=== PATIENT | female | born 1945 | race Asian ===

== ENCOUNTER 2018-09-21 16:29 | Emergency (ER) | payer OTHER ==
--- NOTE | 2018-09-21 19:04 | RAD REPORT ---
EXAM DESCRIPTION: US - Abdomen Exam Limited - 09/21/2018 5:55 pm CLINICAL HISTORY: Abdominal pain. COMPARISON: None. FINDINGS: The gallbladder wall is not thickened. A gallstone is not seen. The biliary tree is normal caliber. IMPRESSION: Unremarkable gallbladder ultrasound.
[2018-09-21 20:09] LABS: Urine Blood TRACE (NEG); Urine Glucose NEGATIVE (NEG); Urine Protein NEGATIVE (NEG); Urine Specific Gravity 1.015 (1.005-1.030); Urine pH 7.5 (5.0-7.0)
[2018-09-21] MEDS ORDERED: KETOROLAC 30 MG/ML INJ ONE (20:24)
[2018-09-21 20:26] LABS: Absolute Lymphocytes (CBC) 2.5 K/uL (0.7-4.9); Absolute Monocytes 0.6 K/uL (0.1-1.3); Absolute Neutrophil 3.1 K/uL (1.8-8.0); Basophils % 1.1 % (0-1.3); Eosinophils % 2.4 % (0-4.4); Hematocrit 41.3 % (36.0-45.0); Lymphocytes % 39.1 % (15.3-44.8); MPV 9.3 fL (7.6-11.3); Monocytes % 9.2 % (3.3-12.3)
[2018-09-21 20:29] LABS: Urine Bacteria NONE SEEN /HPF (<20); Urine RBC <5 /HPF (NONE SEEN)
[2018-09-21 20:30] LABS: Urine Culture Reflex Order NOT NEEDED
[2018-09-21 20:39] LABS: ALT/SGPT 208 U/L (12-78); AST/SGOT 190 U/L (15-37); Albumin 4.1 g/dL (3.4-5.0); Alkaline Phosphatase 85 U/L (45-117); BUN Blood Urea Nitrogen 13 mg/dL (7-18); Bicarbonate 29 mmol/L (21-32); Bilirubin Direct < 0.1 mg/dL (0-0.2); Bilirubin Total 0.2 mg/dL (0.2-1.0); Glucose Level 91 mg/dL (74-106); Lipase 385 U/L (73-393); Potassium 4.1 mmol/L (3.5-5.1); Protein, Total 8.6 g/dL (6.4-8.2); Sodium Level 143 mmol/L (136-145)
--- NOTE | 2018-09-21 21:49 | RAD REPORT ---
EXAM DESCRIPTION: CT - Abdomen Pelvis W Contrast - 09/21/2018 9:31 pm CLINICAL HISTORY: Abdominal pain/right upper quadrant pain COMPARISON: none. TECHNIQUE: Computed axial tomography of the abdomen pelvis was obtained. 100 cc Isovue-300 was admin istered intravenously. Oral contrast was not requested which limits evaluation of bowel. All CT scans are performed using dose optimization technique as appropriate and may include automated exposure control or mA/KV adjustment according to patient size. FINDINGS: The liver, spleen, pancreas, adrenal and left kidney appear unremarkable. 19 millimeter ri ght renal mass has a Hounsfield unit 27 There is no evidence of diverticulitis. The appendix is normal. An adnexal mass is not seen Calcification of the posterior longitudinal ligament within the lower thoracic and upper lumbar spine mildly encroach upon the thecal sac IMPRESSION: 19 millimeter right renal mass most likely representing a benign complex cyst. A followu p renal ultrasound in 6 months recommended for re-evaluation No acute abnormality splayed.
--- NOTE | 2018-09-21 22:22 | RAD REPORT ---
EXAM DESCRIPTION: Jonathan Serna (2 Views)09/21/2018 8:25 pm CLINICAL HISTORY: Abdominal pain COMPARISON: None FINDINGS: The lungs appear clear of acute infiltrate. The heart is borderline enlarged IMPRESSION: No acute abnormalities displayed
--- NOTE | 2018-09-21 22:40 | EDPHYS ---
Physician Documentation [facility] Name: Patty Ty Age: 72 yrs Sex: Female : 1945 Arrival Date: 09/21/2018 Time: 16:33 Bed 17 Private MD: Namrata Nieto ED Physician Corey Soto HPI: 09/21 20:49 This 72 yrs old Female presents to ER via Ambulatory with complaints of Abdominal wa Pain. 20:49 The patient presents with abdominal pain in the right upper quadrant, R flank. Onset: wa The symptoms/episode began/occurred 3 day(s) ago. The symptoms do not radiate. Associated signs and symptoms: Pertinent negatives: nausea and vomiting, diarrhea, dysuria, fever. The symptoms are described as sharp. Modifying factors: The symptoms are alleviated by nothing, the symptoms are aggravated by nothing. Severity of pain: At its worst the pain was moderate in the emergency department the pain is unchanged. The patient has not experienced similar symptoms in the past. The patient has not recently seen a physician. Historical: - Allergies: 16:57 No Known Allergies; aj - Home Meds: 16:57 Advair Diskus Inhl [Active]; aj - PMHx: 16:57 Asthma; GERD; aj - PSHx: 16:57 ; aj - Immunization history:: Adult Immunizations up to date. - Social history:: Smoking status: Patient/guardian denies using tobacco. - Ebola Screening: : Patient negative for fever greater than or equal to 101.5 degrees Fahrenheit, and additional compatible Ebola Virus Disease symptoms Patient denies exposure to infectious person Patient denies travel to an Ebola-affected area in the 21 days before illness onset No symptoms or risks identified at this time. - Family history:: not pertinent. - Hospitalizations: : No recent hospitalization is reported. ROS: 20:50 Constitutional: Negative for fever, chills, and weight loss, Eyes: Negative for injury, wa pain, redness, and discharge, ENT: Negative for injury, pain, and discharge, Neck: Negative for injury, pain, and swelling, Cardiovascular: Negative for chest pain, palpitations, and edema, Respiratory: Negative for shortness of breath, cough, wheezing, and pleuritic chest pain, Back: Negative for injury and pain, : Negative for injury, bleeding, discharge, and swelling, MS/Extremity: Negative for injury and deformity, Skin: Negative for injury, rash, and discoloration, Neuro: Negative for headache, weakness, numbness, tingling, and seizure, Psych: Negative for depression, anxiety, suicide ideation, homicidal ideation, and hallucinations. 20:50 Abdomen/GI: Positive for abdominal pain, Negative for nausea and vomiting, diarrhea. Exam: 20:50 Constitutional: This is a well developed, well nourished patient who is awake, alert, wa and in no acute distress. Head/Face: Normocephalic, atraumatic. Eyes: Pupils equal round and reactive to light, extra-ocular motions intact. Lids and lashes normal. Conjunctiva and sclera are non-icteric and not injected. Cornea within normal limits. Periorbital areas with no swelling, redness, or edema. ENT: Nares patent. No nasal discharge, no septal abnormalities noted. Tympanic membranes are normal and external auditory canals are clear. Oropharynx with no redness, swelling, or masses, exudates, or evidence of obstruction, uvula midline. Mucous membranes moist. Neck: Trachea midline, no thyromegaly or masses palpated, and no cervical lymphadenopathy. Supple, full range of motion without nuchal rigidity, or vertebral point tenderness. No Meningismus. Chest/axilla: Normal chest wall appearance and motion. Nontender with no deformity. No lesions are appreciated. Cardiovascular: Regular rate and rhythm with a normal S1 and S2. No gallops, murmurs, or rubs. Normal PMI, no JVD. No pulse deficits. Respiratory: Lungs have equal breath sounds bilaterally, clear to auscultation and percussion. No rales, rhonchi or wheezes noted. No increased work of breathing, no retractions or nasal flaring. Back: No spinal tenderness. No costovertebral tenderness. Full range of motion. Skin: Warm, dry with normal turgor. Normal color with no rashes, no lesions, and no evidence of cellulitis. MS/ Extremity: Pulses equal, no cyanosis. Neurovascular intact. Full, normal range of motion. Neuro: Awake and alert, GCS 15, oriented to person, place, time, and situation. Cranial nerves II-XII grossly intact. Motor strength 5/5 in all extremities. Sensory grossly intact. Cerebellar exam normal. Normal gait. Psych: Awake, alert, with orientation to person, place and time. Behavior, mood, and affect are within normal limits. 20:50 Abdomen/GI: Inspection: abdomen appears normal, Bowel sounds: normal, in all quadrants, Palpation: soft, in all quadrants, mild abdominal tenderness, in the right upper quadrant. Vital Signs: 16:57 BP 147 / 85; Pulse 75; Resp 20; Temp 98.0; Pulse Ox 98% on R/A; Weight 56.7 kg; Height aj 5 ft. 0 in. (152.40 cm); 19:30 BP 167 / 95; Pulse 61; Resp 18; Pulse Ox 99% ; Pain 8/10; rr5 20:30 BP 155 / 75; Pulse 59; Resp 17; Pulse Ox 98% ; rr5 21:20 BP 146 / 71; Pulse 63; Resp 17; Pulse Ox 99% ; rr5 22:30 BP 141 / 76; Pulse 64; Resp 16; Pulse Ox 99% ; rr5 23:30 BP 142 / 73; Pulse 62; Resp 17; Pulse Ox 98% ; rr5 16:57 Body Mass Index 24.41 (56.70 kg, 152.40 cm) MDM: 19:36 Patient medically screened. wa 20:51 Differential diagnosis: abd pain. mildly tender over RUQ area. will work up and wa reassess. 20:53 Data reviewed: vital signs, nurses notes, lab test result(s), radiologic studies. Test wa interpretation: by ED physician or midlevel provider: labs positive for elevated AST and ALT at 190 and 208 respectively. nml CXR. nml RUQ US. . 22:35 Test interpretation: by ED physician or midlevel provider: CT abd/pelvis: 19 mm renal wa mass noted. ED course: pain improved. elevated liver enzymes of unclear etiology. will have f/u with GI. follow up with urology for R renal mass. etiology of R side abd pain still unclear. related to renal mass? . 09/21 19:57 Order name: Urine Dipstick--Ancillary (enter results); Complete Time: 20:53 oe 09/21 19:58 Order name: Basic Metabolic Panel; Complete Time: 20:53 wa 09/21 19:58 Order name: CBC with Diff; Complete Time: 20:53 wa 09/21 19:58 Order name: Hepatic Function; Complete Time: 20:53 wa 09/21 19:58 Order name: Lipase; Complete Time: 20:53 ct 09/21 19:58 Order name: Urine Microscopic Only; Complete Time: 20:52 ct 09/21 16:58 Order name: US Abdomen Limited; Complete Time: 19:58 09/21 19:58 Order name: IV Saline Lock; Complete Time: 20:52 ct 09/21 19:58 Order name: Labs collected and sent; Complete Time: 20:52 ct 09/21 19:59 Order name: Chest Pa And Lat (2 Views) XRAY; Complete Time: 22:23 ct 09/21 19:59 Order name: CT Abd/Pelvis - W/Contrast; Complete Time: 22:23 ct Administered Medications: 20:30 Drug: TORadol 30 mg Route: IVP; Site: right forearm; rr5 22:48 Drug: Zofran 4 mg Route: IVP; Site: right forearm; rr5 22:50 Drug: fentaNYL (PF) 25 mcg Route: IVP; Site: right forearm; rr5 Disposition: 09/21/18 22:40 Discharged to Home. Impression: Right side abdominal pain, Elevated Liver Enzymes, Right kidney mass. - Condition is Stable. - Discharge Instructions: Abdominal Pain, Adult, [id number]. - Medication Reconciliation Form, Thank You Letter, Antibiotic Education, Prescription Opioid Use form. - Follow up: Corey Wood MD; When: 2 - 3 days; Reason: elevated liver enzymes. Follow up: Allan Jamil MD; When: 2 - 3 days; Reason: mass on Right kidney. - Notes: take pain medication as prescribed. follow up with the urologist for mass on the right kidney. also follow up with the gastro doctor for high liver enzymes. you may need to be checked for hepatitis. return to ER immediately if worsening pain or any new concerns Signatures: Dispatcher [employer] EDMS Maria G Prather RN RN aj Appiah, William, MD MD wa Roque, Raymond RN RN rr5 Corrections: (The following items were deleted from the chart) 23:40 22:40 09/21/2018 22:40 Discharged to Home. Impression: Right side abdominal pain; rr5 Elevated Liver Enzymes; Right kidney mass. Condition is Stable. Forms are Medication Reconciliation Form, Thank You Letter, Antibiotic Education, Prescription Opioid Use. Follow up: Corey Wood; When: 2 - 3 days; Reason: elevated liver enzymes. Follow up: Allan Jamil; When: 2 - 3 days; Reason: mass on Right kidney. wa
--- NOTE | 2018-09-21 22:40 | ER ---
Nurse's Notes [facility] Name: Patty Ty Age: 72 yrs Sex: Female : 1945 Arrival Date: 09/21/2018 Time: 16:33 Bed 17 Private MD: Namrata Nieto Diagnosis: Right side abdominal pain;Elevated Liver Enzymes;Right kidney mass Presentation: 09/21 16:55 Presenting complaint: Patient states: RUQ pain that radiates to back for 3 days. aj Transition of care: patient was not received from another setting of care. Onset of symptoms was September 18, 2018. Risk Assessment: Do you want to hurt yourself or someone else? Patient reports no desire to harm self or others. Initial Sepsis Screen: Does the patient meet any 2 criteria? No. Patient's initial sepsis screen is negative. Does the patient have a suspected source of infection? No. Patient's initial sepsis screen is negative. Care prior to arrival: None. 16:55 Method Of Arrival: Ambulatory aj 16:55 Acuity: ARUNA 3 aj Triage Assessment: 16:57 General: Appears in no apparent distress. uncomfortable, Behavior is calm, cooperative, aj appropriate for age. Pain: Complains of pain in posterior aspect of right lateral abdomen, anterior aspect of right lateral abdomen and right upper quadrant. Neuro: Level of Consciousness is awake, alert, obeys commands, Oriented to person, place, time, situation, Appropriate for age. Respiratory: Airway is patent Respiratory effort is even, unlabored, Respiratory pattern is regular, symmetrical. GI: Abdomen is flat, non-distended, Reports upper abdominal pain. Derm: Skin is intact, is healthy with good turgor, Skin is pink, warm \T\ dry. normal. Historical: - Allergies: 16:57 No Known Allergies; aj - Home Meds: 16:57 Advair Diskus Inhl [Active]; aj - PMHx: 16:57 Asthma; GERD; aj - PSHx: 16:57 ; aj - Immunization history:: Adult Immunizations up to date. - Social history:: Smoking status: Patient/guardian denies using tobacco. - Ebola Screening: : Patient negative for fever greater than or equal to 101.5 degrees Fahrenheit, and additional compatible Ebola Virus Disease symptoms Patient denies exposure to infectious person Patient denies travel to an Ebola-affected area in the 21 days before illness onset No symptoms or risks identified at this time. - Family history:: not pertinent. - Hospitalizations: : No recent hospitalization is reported. Screenin:30 Abuse screen: Denies threats or abuse. Denies injuries from another. Nutritional rr5 screening: No deficits noted. Tuberculosis screening: No symptoms or risk factors identified. Fall Risk IV access (20 points). Total Liriano Fall Scale indicates No Risk (0-24 pts). Assessment: 19:30 General: Appears in no apparent distress. uncomfortable, Behavior is calm, cooperative, rr5 appropriate for age. Pain: Complains of pain in RUQ Pain does not radiate. Pain currently is 8 out of 10 on a pain scale. Quality of pain is described as aching, Pain began gradually, Is intermittent. 19:30 Neuro: Level of Consciousness is awake, alert, obeys commands, Oriented to person, rr5 place, time, situation, Appropriate for age. Cardiovascular: Capillary refill < 3 seconds Patient's skin is warm and dry. Respiratory: Airway is patent Respiratory effort is even, unlabored, Respiratory pattern is regular, symmetrical. GI: Bowel sounds present X 4 quads. Abd is soft and non tender X 4 quads. : No signs and/or symptoms were reported regarding the genitourinary system. EENT: No signs and/or symptoms were reported regarding the EENT system. Derm: Skin is intact, Skin temperature is warm. Musculoskeletal: Capillary refill < 3 seconds, Range of motion: intact in all extremities. 20:30 Reassessment: Patient appears in no apparent distress at this time. No changes from rr5 previously documented assessment. Patient and/or family updated on plan of care and expected duration. Pain level reassessed. 21:40 Reassessment: Patient appears in no apparent distress at this time. Patient and/or rr5 family updated on plan of care and expected duration. Pain level reassessed. awaiting for report Patient states feeling better. Patient states symptoms have improved. 22:40 Reassessment: Patient appears in no apparent distress at this time. stat medication for rr5 the pain given, kept for observation. 23:30 Reassessment: Patient appears in no apparent distress at this time. Patient and/or rr5 family updated on plan of care and expected duration. Pain level reassessed. discharge instruction and medication explained to patient without complaints made. Patient states feeling better. Patient states symptoms have improved. Vital Signs: 16:57 BP 147 / 85; Pulse 75; Resp 20; Temp 98.0; Pulse Ox 98% on R/A; Weight 56.7 kg; Height aj 5 ft. 0 in. (152.40 cm); 19:30 BP 167 / 95; Pulse 61; Resp 18; Pulse Ox 99% ; Pain 8/10; rr5 20:30 BP 155 / 75; Pulse 59; Resp 17; Pulse Ox 98% ; rr5 21:20 BP 146 / 71; Pulse 63; Resp 17; Pulse Ox 99% ; rr5 22:30 BP 141 / 76; Pulse 64; Resp 16; Pulse Ox 99% ; rr5 23:30 BP 142 / 73; Pulse 62; Resp 17; Pulse Ox 98% ; rr5 16:57 Body Mass Index 24.41 (56.70 kg, 152.40 cm) aj ED Course: 16:33 Patient arrived in ED. mr 16:33 Namrata Nieto MD is Private Physician. mr 16:56 Triage completed. aj 16:57 Arm band placed on left wrist. Patient placed in waiting room, Patient notified of wait aj time. 17:55 US Abdomen Limited In Process Unspecified. EDMS 19:30 Patient has correct armband on for positive identification. Placed in gown. Bed in low rr5 position. Call light in reach. Side rails up X 1. Pulse ox on. NIBP on. 19:36 Corey Soto MD is Attending Physician. wa 20:13 Vicente Schreiber RN is Primary Nurse. rr5 20:25 Chest Pa And Lat (2 Views) XRAY In Process Unspecified. EDMS 20:26 Inserted saline lock: 20 gauge in right antecubital area, using aseptic technique. oe Blood collected. 20:37 Radiology exam delayed due to lab results not completed at this time. (BUN/Creatinine). kw1 21:31 CT Abd/Pelvis - W/Contrast In Process Unspecified. EDMS 21:31 CT completed. Patient tolerated procedure well. Patient moved back from CT. kw1 22:38 Corey Wood MD is Referral Physician. wa 22:39 Allan Jamil MD is Referral Physician. wa 23:30 No provider procedures requiring assistance completed. IV discontinued, intact, rr5 bleeding controlled, No redness/swelling at site. Pressure dressing applied. Administered Medications: 20:30 Drug: TORadol 30 mg Route: IVP; Site: right forearm; rr5 22:48 Drug: Zofran 4 mg Route: IVP; Site: right forearm; rr5 22:50 Drug: fentaNYL (PF) 25 mcg Route: IVP; Site: right forearm; rr5 Outcome: 22:40 Discharge ordered by . geronimo 23:30 Discharged to home ambulatory, with family. rr5 23:30 Condition: stable 23:30 Discharge instructions given to patient, family, Instructed on discharge instructions, follow up and referral plans. medication usage, Demonstrated understanding of instructions, follow-up care, medications, Prescriptions given X 1. 23:41 Patient left the ED. rr5 Signatures: Dispatcher [employer] EDMaria G Arreola, RN Bonny Figueroa Orlando oe Appiah, William, MD MD wa Wilhelm, Kimberly [facility] Vicente Schreiber RN RN rr5
[2018-09-21] MEDS ORDERED: FENTANYL CITR 100 MCG/2 ML ONE (22:55)
[2018-09-21] MEDS ORDERED: ONDANSETRON 4 MG/2 ML VIAL ONE (22:55)
== END 2018-09-21 23:41 | disposition home or self-care (01) ==
LOC: ER 16:29
DX: R79.89 Other specified abnormal findings of blood chemistry (principal); N28.89 Other specified disorders of kidney and ureter; J45.909 Unspecified asthma, uncomplicated
CPT/HCPCS: 36415; 71046; 74177; 76705; 80048; 80076; 81003; 81015; 83690; 85025; 96374; 96375; 99284; J2405; J3010; Q9967

== ENCOUNTER 2019-03-10 08:05 | Day surgery (SDC) | payer OTHER ==
[2019-03-10] MEDS ORDERED: Ringers Lactate 1,000 ML IV ONE (08:27)
[2019-03-10] MEDS ORDERED: PROPOFOL 200 MG/20 ML VIAL IV ONE ×2 (08:39)
[2019-03-10] MEDS ORDERED: GLYCOPYRROLATE 0.2 MG/ML SYR ONE (08:39)
[2019-03-10] MEDS ORDERED: LIDOCAINE 1% MPF 5 ML VIAL ONE (08:39)
--- NOTE | 2019-03-10 16:47 | OP ---
Surgeon: Joel Mckinney MD Procedure To Be Performed: Colonoscopy. Indication For Procedures: Screening. Plan For Anesthesia: Monitored anesthesia care. Complexity: Average. Technique: After obtaining informed consent from the patient and explaining risks and complications which include, but are not limited to bleeding, infection, perforation, anesthesia complications, pat ient was placed in left lateral position and sedation was given. Subsequently, the scope was inserte d into the rectum and carefully guided up till the cecum. The cecum was identified by the appendicea l orifice and ileocecal valve. Scope withdrawal time was 11 minutes. Quality of prep according to B oston prep score was 2 + 2 + 2, equal to 6/9. After the completion of examination, the scope and equ ipment were withdrawn and procedure terminated in a safe manner. Findings: 1.Digital rectal exam revealed small external hemorrhoids. 2.4-5 mm polyps were seen in the transverse colon. These were removed by hot biopsy. A 4 mm sessil e polyp was seen in the cecum. This was removed with hot biopsy. No other gross lesions were seen i n the entire colon. Retroflexion revealed grade 1 internal hemorrhoids. Complications: None. Tolerance To Anesthesia: Excellent. Postoperative Diagnosis: Polyps. Plan: 1.Await pathology results. 2.Followup in the GI clinic as scheduled. 3.Repeat colonoscopy in 3-5 years based on pathology. US/MODL Voice ID: [id number] Report ID: [id number]
== END 2019-03-10 09:59 | disposition home health service (06) ==
LOC: OR 08:05
PROVIDERS: ATTEND Internal Medicine Gastroenterology
PROC: 0DBL8ZX Excision of Transverse Colon, Via Natural or Artificial Opening Endoscopic, Diagnostic (ICD-10-PCS; 2019-03-10)
PROC: 0DBH8ZX Excision of Cecum, Via Natural or Artificial Opening Endoscopic, Diagnostic (ICD-10-PCS; principal; 2019-03-10 08:30)
DX: Z12.11 Encounter for screening for malignant neoplasm of colon (principal); K63.5 Polyp of colon; D12.3 Benign neoplasm of transverse colon; K64.8 Other hemorrhoids; I10 Essential (primary) hypertension; J45.909 Unspecified asthma, uncomplicated; K21.9 Gastro-esophageal reflux disease without esophagitis; K76.0 Fatty (change of) liver, not elsewhere classified; Z79.51 Long term (current) use of inhaled steroids; Z79.899 Other long term (current) drug therapy
CPT/HCPCS: 88305; J2704

== ENCOUNTER 2019-04-21 07:42 | Day surgery (SDC) | payer OTHER ==
[2019-04-21] MEDS ORDERED: Ringers Lactate 1,000 ML IV ONE (07:48)
[2019-04-21] MEDS ORDERED: LIDOCAINE 1% MPF 5 ML VIAL ONE (09:01)
[2019-04-21] MEDS ORDERED: PROPOFOL 200 MG/20 ML VIAL IV ONE (09:01)
--- NOTE | 2019-04-21 20:25 | OP ---
Surgeon: Joel Mckinney MD Procedure To Be Performed: Esophagogastroduodenoscopy. Indication For Procedure: Chronic longstanding GERD, right upper quadrant pain. Plan For Anesthesia: Monitored anesthesia care. Complexity: Average. Technique: After obtaining informed consent from the patient and explaining the risks and complicati ons which include but are not limited to bleeding, infection, perforation, and anesthesia complicatio n, patient was placed in the left lateral position and sedation was given. Subsequently, the scope w as advanced through the mouth and carefully guided up until the second portion of the duodenum. Afte r the completion of examination and all diagnostic maneuvers, the scope and equipment were withdrawn and procedure terminated in a safe manner. Findings: Esophagus: No gross lesion seen in the entire esophagus. The GE junction was at 36 cm. Stomach: Mild patchy erythema seen in the body and antrum. Biopsies were done. Duodenum: The bulb and second portion appeared normal. Complications: None. Tolerance To Anesthesia: Excellent. Postoperative Diagnosis: Mild gastritis. Plan: 1.Await pathology results. 2.Oral PPI once a day. 3.Follow up in the GI clinic in 2 weeks. US/MODL Voice ID: [id number] Report ID: [id number]
== END 2019-04-21 09:50 | disposition home or self-care (01) ==
LOC: OR 07:42
PROVIDERS: ATTEND Internal Medicine Gastroenterology
PROC: 0DB68ZX Excision of Stomach, Via Natural or Artificial Opening Endoscopic, Diagnostic (ICD-10-PCS; principal; 2019-04-21 08:30)
DX: K29.50 Unspecified chronic gastritis without bleeding (principal); K21.9 Gastro-esophageal reflux disease without esophagitis; I10 Essential (primary) hypertension; J45.909 Unspecified asthma, uncomplicated
CPT/HCPCS: 43239; 88312; 88305; J2704

== ENCOUNTER 2019-10-30 18:34 | Emergency (ER) | payer OTHER, SELFPAY ==
--- NOTE | 2019-10-30 20:31 | RAD REPORT ---
EXAM DESCRIPTION: RAD - Pelvis - 10/30/2019 7:54 pm CLINICAL HISTORY: BLUNT TRAUMA, trip and fall COMPARISON: No comparisons TECHNIQUE: AP imaging of the pelvis was obtained. FINDINGS: No fracture of the bony pelvis. No fracture or dislocation of either proximal femur. Mild SI joint degenerative change present. Sacral ala are obscured by bowel. IMPRESSION: No pelvic fracture. Sacral ala obscured by bowel.
--- NOTE | 2019-10-30 20:33 | RAD REPORT ---
EXAM DESCRIPTION: RAD - Lumbar Spine 3 Views - 10/30/2019 7:54 pm CLINICAL HISTORY: PAIN, fall, back pain COMPARISON: No comparisons FINDINGS: A three-view lumbar spine examination was performed. Lumbar bodies are normal in height and AP alignment. There is a minimal plaque concave contour to the T12 endplates without overall loss in height. Bones are osteopenic. Endplate spurring and facet join t degenerative changes are present. No acute fracture confirmed and no pathologic process identifiabl e. L4 changes along the superior endplate of favored to be degenerative. L3-4 disc space narrowing pr esent. Facet joint degenerative change present. No pars defects identified. IMPRESSION: Osteopenic and degenerative changes are present in the spine without acute lumbar findin g confirmed. Continued, unexplained back symptoms can be further addressed with MR imaging to assess for possible occult bony injury, disc herniation or central canal abnormality.
--- NOTE | 2019-10-30 20:34 | RAD REPORT ---
EXAM DESCRIPTION: RAD - Sacrum And Coccyx - 10/30/2019 7:54 pm CLINICAL HISTORY: PAIN, trip and fall back pain COMPARISON: Lumbar Spine 3 Views dated 10/30/2019 FINDINGS: No fracture of the sacrum or coccyx segments identifiable. No pathologic bone process. Lumbar degener ative changes are separately detailed. IMPRESSION: Negative sacrum and coccyx examination for acute finding.
--- NOTE | 2019-10-30 20:35 | RAD REPORT ---
EXAM DESCRIPTION: RAD - Foot Right 3 View - 10/30/2019 7:54 pm CLINICAL HISTORY: right 3rd/4th/5th toe injury ;Pain COMPARISON: No comparisons FINDINGS: Transverse fracture is present at the base of the proximal phalanx. This does not involve the articular surface. No significant distraction or angulation deformity. No other acute fracture changes seen. Mild IP joint degenerative changes are present. There are mild degenerative changes of the first MTP joint. Patient has a small plantar spur and moderate spur at th e Achilles attachment. No air or foreign body in the soft tissues. IMPRESSION: Fracture of the fifth toe proximal phalanx as detailed.
--- NOTE | 2019-10-30 20:43 | ER ---
Nurse's Notes [facility] Name: Patty Ty Age: 73 yrs Sex: Female : 1945 Arrival Date: 10/30/2019 Time: 18:35 Bed 7 Private MD: Diagnosis: Displaced fracture of proximal phalanx of right lesser toe(s)-5th toe Presentation: 10/30 18:51 Presenting complaint: Child states: She tripped on child andrews at around 1500 today and ca1 fell. Landed on her back and she also said she twisted the toes on her R foot. Now, she c/o low back pain and R toes pain. Denies hitting head, NO LOC, not on blood thinners. Transition of care: patient was not received from another setting of care. Onset of symptoms was October 30, 2019. Risk Assessment: Do you want to hurt yourself or someone else? Patient reports no desire to harm self or others. Initial Sepsis Screen: Does the patient meet any 2 criteria? No. Patient's initial sepsis screen is negative. Does the patient have a suspected source of infection? No. Patient's initial sepsis screen is negative. Care prior to arrival: None. 18:51 Method Of Arrival: Wheelchair ca1 18:51 Acuity: ARUNA 4 ca1 Historical: - Allergies: 18:57 No Known Allergies; ca1 - PMHx: 18:57 Asthma; GERD; Hypertension; ca1 - Immunization history:: Adult Immunizations up to date, Pneumococcal vaccine status is unknown, Flu vaccine is up to date. - Coronavirus screen:: The patient has NOT traveled to [place] in the past 14 days. The patient has NOT had contact with known/suspected case of Coronavirus?. - Social history:: Smoking status: Patient denies any tobacco usage or history of. - Family history:: not pertinent. - Ebola Screening: : Patient negative for fever greater than or equal to 101.5 degrees Fahrenheit, and additional compatible Ebola Virus Disease symptoms Patient denies exposure to infectious person Patient denies travel to an Ebola-affected area in the 21 days before illness onset No symptoms or risks identified at this time. - Hospitalizations: : No recent hospitalization is reported. Screenin:26 Abuse screen: Denies threats or abuse. Denies injuries from another. Nutritional lp1 screening: No deficits noted. Tuberculosis screening: No symptoms or risk factors identified. Fall Risk None identified. Assessment: 19:23 General: Appears in no apparent distress. Behavior is calm, cooperative, appropriate lp1 for age. Pain: Complains of pain in right third toe, right fourth toe and right fifth toe Pain currently is 7 out of 10 on a pain scale. Quality of pain is described as aching. Neuro: No deficits noted. Cardiovascular: No deficits noted. Respiratory: No deficits noted. GI: No signs and/or symptoms were reported involving the gastrointestinal system. : No signs and/or symptoms were reported regarding the genitourinary system. EENT: No signs and/or symptoms were reported regarding the EENT system. Derm: Bruising that is dark purple, on right third toe, right fourth toe and right fifth toe. Musculoskeletal: Capillary refill < 3 seconds, in bilateral toes. Vital Signs: 18:57 BP 160 / 92; Pulse 71; Resp 16 S; Temp 98.1(O); Pulse Ox 97% on R/A; Weight 58.97 kg ca1 (R); Height 5 ft. 1 in. (154.94 cm) (R); 18:57 Body Mass Index 24.56 (58.97 kg, 154.94 cm) ca1 ED Course: 18:35 Patient arrived in ED. as 18:55 Triage completed. ca1 18:57 Arm band placed on right wrist. ca1 19:01 En Walsh MD is Attending Physician. rn 19:23 Jessika Mendes, LINDA is Primary Nurse. lp1 19:26 Patient has correct armband on for positive identification. lp1 19:26 No provider procedures requiring assistance completed. Patient did not have IV access lp1 during this emergency room visit. 21:15 Larry tape right fourth toe and right fifth toe Ortho shoe applied to right foot. lp1 Administered Medications: No medications were administered Outcome: 20:42 Discharge ordered by . rn 21:15 Discharged to home via wheelchair, with family. lp1 21:15 Condition: good 21:15 Discharge instructions given to patient, family, Instructed on discharge instructions, follow up and referral plans. Demonstrated understanding of instructions, follow-up care. 21:21 Patient left the ED. lp1 Signatures: Maddison Serrato Roman, MD MD rn Pena, Laura, RN RN lp1 Acob, Monica, RN RN ca1 Corrections: (The following items were deleted from the chart) 18:56 18:51 Presenting complaint: Child states: She tripped on child andrews at around 1500 ca1 today and fell. Landed on her back and she also said she twisted the toes on her R foot. Now, she c/o low back pain and R toes pain. ca1
--- NOTE | 2019-10-30 20:43 | EDPHYS ---
Physician Documentation [facility] Name: Patty Ty Age: 73 yrs Sex: Female : 1945 Arrival Date: 10/30/2019 Time: 18:35 Bed 7 Private MD: ED Physician En Walsh HPI: 10/30 19:25 This 73 yrs old Female presents to ER via Wheelchair with complaints of Fall rn Injury. 19:27 Details of fall: The patient fell from an upright position, while standing. Onset: The rn symptoms/episode began/occurred just prior to arrival. Associated injuries: The patient sustained right foot, lower back. Severity of symptoms: At their worst the symptoms were mild, in the emergency department the symptoms are unchanged. The patient has not experienced similar symptoms in the past. Reports tripped while trying to step over baby gate, reports stubbed right toes, and landed on buttocks, reports low back and seat pain, and right lateral 3 toes are painful, reports 5th toe was crooked and twisted it back in.. Historical: - Allergies: 18:57 No Known Allergies; ca1 - PMHx: 18:57 Asthma; GERD; Hypertension; ca1 - Immunization history:: Adult Immunizations up to date, Pneumococcal vaccine status is unknown, Flu vaccine is up to date. - Coronavirus screen:: The patient has NOT traveled to [place] in the past 14 days. The patient has NOT had contact with known/suspected case of Coronavirus?. - Social history:: Smoking status: Patient denies any tobacco usage or history of. - Family history:: not pertinent. - Ebola Screening: : Patient negative for fever greater than or equal to 101.5 degrees Fahrenheit, and additional compatible Ebola Virus Disease symptoms Patient denies exposure to infectious person Patient denies travel to an Ebola-affected area in the 21 days before illness onset No symptoms or risks identified at this time. - Hospitalizations: : No recent hospitalization is reported. ROS: 19:27 Constitutional: Negative for fever, chills, and weight loss, Eyes: Negative for injury, rn pain, redness, and discharge, Neck: Negative for injury, pain, and swelling, Cardiovascular: Negative for chest pain, palpitations, and edema, Respiratory: Negative for shortness of breath, cough, wheezing, and pleuritic chest pain, Abdomen/GI: Negative for abdominal pain, nausea, vomiting, diarrhea, and constipation, Back: + low back pain MS/Extremity: + right foot pain and injury Skin: Negative for injury, rash, and discoloration, Neuro: Negative for headache, weakness, numbness, tingling, and seizure. Exam: 19:27 Constitutional: This is a well developed, well nourished patient who is awake, alert, rn and in no acute distress. Head/Face: Normocephalic, atraumatic. Neck: Trachea midline, no thyromegaly or masses palpated, and no cervical lymphadenopathy. Supple, full range of motion without nuchal rigidity, or vertebral point tenderness. No Meningismus. Chest/axilla: Normal chest wall appearance and motion. Nontender with no deformity. No lesions are appreciated. Cardiovascular: Regular rate and rhythm. No pulse deficits. Respiratory: No increased work of breathing, no retractions or nasal flaring. Abdomen/GI: soft, non-tender Back: No spinal tenderness. No costovertebral tenderness. Full range of motion. MS/ Extremity: Pulses equal, no cyanosis. Neurovascular intact. Full, normal range of motion. Equal circumference. + right lateral 3 toes with ecchymosis and tenderness, no gross deformity or angulation. Neuro: Awake and alert, GCS 15, oriented to person, place, time, and situation. Cranial nerves II-XII grossly intact. Motor strength 5/5 in all extremities. Sensory grossly intact. Vital Signs: 18:57 BP 160 / 92; Pulse 71; Resp 16 S; Temp 98.1(O); Pulse Ox 97% on R/A; Weight 58.97 kg ca1 (R); Height 5 ft. 1 in. (154.94 cm) (R); 18:57 Body Mass Index 24.56 (58.97 kg, 154.94 cm) ca1 MDM: 19:01 Patient medically screened. rn 20:40 Differential diagnosis: contusion, fracture, sprain, strain. Data reviewed: vital rn signs, nurses notes, radiologic studies, plain films, and as a result, I will discharge patient. Counseling: I had a detailed discussion with the patient and/or guardian regarding: the historical points, exam findings, and any diagnostic results supporting the discharge/admit diagnosis, radiology results, the need for outpatient follow up, to return to the emergency department if symptoms worsen or persist or if there are any questions or concerns that arise at home. Special discussion: I discussed with the patient/guardian in detail that at this point there is no indication for admission to the hospital. It is understood, however, that if the symptoms persist or worsen the patient needs to return immediately for re-evaluation. ED course: Xray back and tailbone neg, foot shows 5th proximal phalanx fracture, minimally displaced, will place in hard-soled shoe and dc home with OTC pain meds. . 10/30 19:08 Order name: XRAY Foot RIGHT 3 View rn 10/30 19:08 Order name: XRAY Pelvis rn 10/30 19:08 Order name: XRAY Lumbar Spine (3 Views) rn 10/30 19:08 Order name: XRAY Sacrum And Coccyx rn 10/30 20:38 Order name: RAD; Complete Time: 20:43 EDOH 10/30 20:38 Order name: RAD; Complete Time: 20:43 EDOH 10/30 20:38 Order name: RAD; Complete Time: 20:43 EDOH 10/30 20:38 Order name: RAD; Complete Time: 20:43 EDOH 10/30 20:42 Order name: Misc. Order: Larry tape right 5th and 4th toes, and place in hard sole rn shoe; Complete Time: 21:22 Administered Medications: No medications were administered Disposition: 10/30/19 20:42 Discharged to Home. Impression: Displaced fracture of proximal phalanx of right lesser toe(s) - 5th toe. - Condition is Stable. - Discharge Instructions: Toe Fracture. - Medication Reconciliation Form, Thank You Letter, Antibiotic Education, Prescription Opioid Use form. - Follow up: Private Physician; When: As needed; Reason: Recheck today's complaints, Re-evaluation by your physician. - Problem is new. - Symptoms have improved. Signatures: Dispatcher [employer] EDMS En Walsh MD MD rn Pena, Laura, RN RN lp1 Monica Pride RN RN ca1 Corrections: (The following items were deleted from the chart) 21:21 20:42 10/30/2019 20:42 Discharged to Home. Impression: Displaced fracture of proximal lp1 phalanx of right lesser toe(s) - 5th toe. Condition is Stable. Forms are Medication Reconciliation Form, Thank You Letter, Antibiotic Education, Prescription Opioid Use. Follow up: Private Physician; When: As needed; Reason: Recheck today's complaints, Re-evaluation by your physician. Problem is new. Symptoms have improved. rn
[2019-10-31 14:05] VITALS: BP 160/92; TEMP 98.1; O2SAT 97
== END 2019-10-30 21:21 | disposition home or self-care (01) ==
LOC: ER 18:34
DX: S92.511A Displaced fracture of proximal phalanx of right lesser toe(s), initial encounter for closed fracture (principal); W01.0XXA Fall on same level from slipping, tripping and stumbling without subsequent striking against object, initial encounter; Y93.9 Activity, unspecified; Y92.9 Unspecified place or not applicable
CPT/HCPCS: 72100; 72170; 72220; 99283

== ENCOUNTER 2023-04-11 23:41 | Emergency (ER) | payer OTHER ==
[2023-04-12] MEDS ORDERED: METOCLOPRAMIDE 10 MG/2mL INJ ONE (00:18)
[2023-04-12] MEDS ORDERED: DIPHENHYDRAMINE 50 MG/ML VIAL ONE (00:18)
[2023-04-12] MEDS ORDERED: NA CHLORIDE 0.9% 500 ML ONE (00:19)
[2023-04-12] MEDS ORDERED: KETOROLAC 30 MG/ML INJ ONE (00:19)
[2023-04-12 00:25] LABS: Absolute Lymphocytes (CBC) 1.5 K/uL (0.7-4.9); Hematocrit 39.8 % (36.0-45.0); Lymphocytes % 16.8 % (15.3-44.8); MCV 87.5 fL (80-100); MPV 8.9 fL (7.6-11.3); RBC Red Blood Cell Count 4.56 M/uL (3.86-4.86)
[2023-04-12 00:33] LABS: Protime INR 1.03
[2023-04-12 00:37] LABS: Albumin 4.1 g/dL (3.4-5.0); Bilirubin Direct 0.2 mg/dL (0-0.2); Bilirubin Indirect, Calculated 0.4 mg/dL (0.2-0.8); Bilirubin Total 0.6 mg/dL (0.2-1.0); Magnesium 2.4 mg/dL (1.6-2.4); Potassium 3.1 mEq/L (3.5-5.1); Protein, Total 8.6 g/dL (6.4-8.2); Troponin High Sensitivity 3.2 pg/mL (<58.9)
[2023-04-12] MEDS ORDERED: MORPHINE 4 MG/ML SYR ONE (01:36)
[2023-04-12] MEDS ORDERED: PROMETHAZINE 25 MG TABLET ONE (01:37)
[2023-04-12] MEDS ORDERED: TETRACAINE HCL 0.5% 4ML OPTH ONE (02:02)
[2023-04-12] MEDS ORDERED: MANNITOL 20% 500 ML IV ONE (02:08)
[2023-04-12] MEDS ORDERED: acetaZOLAMIDE 250 MG TAB ONE (02:08)
[2023-04-12] MEDS ORDERED: ISOSORBIDE MONO SR 60 MG TAB PO ONE (02:33)
--- NOTE | 2023-04-12 03:05 | ER ---
Nurse's Notes [facility] Name: Patty Ty Age: 77 yrs Sex: Female : 1945 Arrival Date: 04/11/2023 Time: 23:41 Bed 6 Private MD: Diagnosis: Acute angle-closure glaucoma, right eye;Acute headache and vomiting, primary angle-closure glaucoma Presentation: 04/11 23:56 Chief complaint: Patient's son or daughter states: headache dizziness blurred vision kl nausea since 4 pm today. Coronavirus screen: Vaccine status: Patient reports receiving the 2nd dose of the covid vaccine. Ebola Screen: Patient negative for fever greater than or equal to 101.5 degrees Fahrenheit, and additional compatible Ebola Virus Disease symptoms. Initial Sepsis Screen: Does the patient meet any 2 criteria? No. Patient's initial sepsis screen is negative. Does the patient have a suspected source of infection? No. Patient's initial sepsis screen is negative. Risk Assessment: Do you want to hurt yourself or someone else? Patient reports no desire to harm self or others. Onset of symptoms was April 11, 2023 at 16:00. 23:56 Method Of Arrival: Wheelchair 23:56 Acuity: ARUNA 3 04/12 03:01 Note Mannitol infusing per IV filter. Triage Assessment: 04/11 23:58 Headache History: The patient has had previous headaches and this one is more severe kl than previous episodes. General: Appears distressed, uncomfortable, Behavior is cooperative, anxious. Pain: Complains of pain in right parietal area and face Pain currently is 10 out of 10 on a pain scale. Pain began gradually, Also complains of nausea, photophobia, sleeplessness. Cardiovascular: No deficits noted. Respiratory: No deficits noted. GI: Reports nausea. : No deficits noted. No signs and/or symptoms were reported regarding the genitourinary system. Derm: No deficits noted. No signs and/or symptoms reported regarding the dermatologic system. Musculoskeletal: No deficits noted. No signs and/or symptoms reported regarding the musculoskeletal system. Historical: - Allergies: 23:58 No Known Allergies; kl - Home Meds: 23:58 Advair Diskus Inhl [Active]; omeprazole 20 mg Oral capsule,delayed release (e.c.) daily kl [Active]; - PMHx: 23:58 Asthma; GERD; Hypertension; kl - PSHx: 23:58 None; kl - Social history:: Patient/guardian denies using alcohol, street drugs, IV drugs, caffeine, over the counter diet medications, tobacco products. - Family history:: not pertinent. Screenin/27 00:00 [facility] ED Fall Risk Assessment (Adult) History of falling in the last 3 months, kl including since admission No falls in past 3 months (0 pts) Confusion or Disorientation No (0 pts) Intoxicated or Sedated No (0 pts) Impaired Gait No (0 pts) Mobility Assist Device Used No (0 pt) Altered Elimination No (0 pt) Score/Fall Risk Level 0 - 2 = Low Risk Oriented to surroundings, Maintained a safe environment. Abuse screen: Denies threats or abuse. Nutritional screening: No deficits noted. Tuberculosis screening: No symptoms or risk factors identified. Assessment: 00:01 Reassessment: see triage assessment. 00:34 Reassessment: Patient appears in no apparent distress at this time. Patient and/or jb4 family updated on plan of care and expected duration. Pain level reassessed. Patient is alert, oriented x 3, equal unlabored respirations, skin warm/dry/pink. 01:14 Reassessment: Patient appears in no apparent distress at this time. Patient and/or jb4 family updated on plan of care and expected duration. Pain level reassessed. Patient is alert, oriented x 3, equal unlabored respirations, skin warm/dry/pink. 02:15 Reassessment: Patient appears in no apparent distress at this time. Patient and/or jb4 family updated on plan of care and expected duration. Pain level reassessed. Patient is alert, oriented x 3, equal unlabored respirations, skin warm/dry/pink. 03:15 Reassessment: Patient appears in no apparent distress at this time. Patient and/or jb4 family updated on plan of care and expected duration. Pain level reassessed. Patient is alert, oriented x 3, equal unlabored respirations, skin warm/dry/pink. Vital Signs: 04/11 23:56 BP 168 / 90; Pulse 78; Resp 16; Temp 98.2(O); Pulse Ox 99% on R/A; Weight 55.79 kg (R); kl Height 5 ft. 0 in. ; Pain 10/10; 04/12 01:13 BP 153 / 90; Pulse 87; Resp 16; Pulse Ox 95% on R/A; jb4 02:15 BP 147 / 91; Pulse 92; Resp 16; Pulse Ox 98% on R/A; jb4 03:00 BP 143 / 92; Pulse 95; Resp 16; Pulse Ox 94% on R/A; jb4 04/11 23:56 Body Mass Index 24.02 (55.79 kg, 152.4 cm) 04/11 23:56 Pain Scale: Adult [place] Coma Score: 01:28 Eye Response: spontaneous(4). Motor Response: obeys commands(6). Verbal Response: sp4 oriented(5). Total: 15. ED Course: 04/11 23:45 Patient arrived in ED. es 23:55 Tom Mcelroy MD is Attending Physician. sp4 23:58 Triage completed. 04/12 00:00 Patient has correct armband on for positive identification. Bed in low position. Call light in reach. Adult w/ patient. Door closed. Lights dimmed. Warm blanket given. 00:18 XRAY Chest (1 view) In Process Unspecified. EDMS 00:30 CT Head Brain wo Cont In Process Unspecified. EDMS 00:34 Kirill Kim, RN is Primary Nurse. jb4 02:05 CT Head Angio In Process Unspecified. EDMS 02:05 CT Neck Angio In Process Unspecified. EDMS 02:11 Initiated transfer with Evie at [facility] transfer center. rv1 03:39 No provider procedures requiring assistance completed. Patient transferred, IV remains jb4 in place. Administered Medications: 00:20 Drug: Ketorolac IVP 30 mg Route: IVP; Site: right antecubital; jb4 00:20 Drug: NS 0.9% IV 500 ml Route: IV; Rate: bolus; Site: right antecubital; jb4 00:20 Drug: diphenhydrAMINE IVP 25 mg Route: IVP; Site: right antecubital; jb4 00:20 Drug: metoCLOPramide IVP 10 mg Route: IVP; Site: right antecubital; jb4 01:34 Drug: morphine IVP or IV 4 mg Route: IVP; Infused Over: 4 mins; Site: right antecubital;ll3 01:34 Drug: Promethazine PO 25 mg Route: PO; ll3 02:14 Drug: Tetracaine Ophthalmic Drops 0.5 % 1 drops {Note: Administered by ER provider.} jb4 Route: Ophthalmic; Site: both eyes; 02:14 Not Given (Medication is unavailable): timoloL Drops 0.5 % 1 drops Topical once jb4 02:14 Drug: acetaZOLAMIDE PO 500 mg Route: PO; jb4 02:14 Not Given (Medication is unavailable): Apraclonidine Drops 1 % 1 drops Ophthalmic once; jb4 as a single dose 02:30 Drug: Isosorbide Mononitrate Extended Release 24 hour Tablet 60 mg Route: PO; jb4 02:58 Drug: Mannitol IV 20% 1 g/kg {Note: 60 gms to administer in 30 minutes 300cc to infuse kl at 600cc/hr.} Volume: 500 ml; Route: IV; Rate: calculated rate; Site: right antecubital; 03:32 Follow up: IV Status: Completed infusion; IV Intake: 300ml kl Medication: 03:39 VIS not applicable for this client. jb4 Intake: 03:32 IV: 300ml; Total: 300ml. kl Outcome: 03:05 ER care complete, transfer ordered by . sp4 03:39 Transferred by [facility] to [facility], Transfer form completed. jb4 X-rays sent w/ patient. 03:39 Condition: stable 03:39 Discharge instructions given to patient, family, Instructed on the need for transfer, Demonstrated understanding of instructions. 03:42 Patient left the ED. jb4 Signatures: Dispatcher [employer] Kristen Chandler RN RN kl Salyer, Edna es Bryson, James, RN RN jb4 Luis Enrique Rubio RN RN ll3 Rose [id number] Tom Mcelroy MD MD sp4 Corrections: (The following items were deleted from the chart) 01:52 07 23:58 Neuro: Level of Consciousness is awake, alert, obeys commands, Oriented to kl person, place, time, situation, Sand Analyst are equal bilaterally Moves all extremities. Full function Gait is steady, Speech is normal, Facial symmetry appears normal, Pupils are PERRLA, Intact Babinski is negative kl
--- NOTE | 2023-04-12 03:05 | EDPHYS ---
Physician Documentation [facility] Name: Patty Ty Age: 77 yrs Sex: Female : 1945 Arrival Date: 04/11/2023 Time: 23:41 Bed 6 Private MD: ED Physician Tom Mcelroy HPI: 04/11 23:55 This 77 yrs old Female presents to ER via Unassigned with complaints of Headache, sp4 Dizziness, Vomiting, Blurred Vision. 04/12 01:25 77-year-old female from [place], presents with a cute onset of moderate to severe sp4 headache associated with blurry vision dizziness and also reported vomiting. Patient denied any fever. Patient speaks Telugu only and patient's family translated for us.. Patient denies unilateral weakness, slurred speech, or any other symptoms. Historical: - Allergies: 04/11 23:58 No Known Allergies; kl - Home Meds: 23:58 Advair Diskus Inhl [Active]; omeprazole 20 mg Oral capsule,delayed release (e.c.) daily kl [Active]; - PMHx: 23:58 Asthma; GERD; Hypertension; kl - PSHx: 23:58 None; kl - Social history:: Patient/guardian denies using alcohol, street drugs, IV drugs, caffeine, over the counter diet medications, tobacco products. - Family history:: not pertinent. ROS: 04/12 01:25 Constitutional: Negative for fever, chills, and weight loss, positive for dizziness, sp4 headache, vomiting, blurry vision Eyes: Negative for injury, pain, redness, and discharge, positive for bilateral blurring of vision ENT: Negative for injury, pain, and discharge, Cardiovascular: Negative for chest pain, palpitations, and edema, positive for dizziness Abdomen/GI: Negative for abdominal pain, diarrhea, and constipation, positive for nausea and vomiting Back: Negative for injury and pain, : Negative for injury, bleeding, discharge, and swelling, Neuro: Negative for weakness, numbness, tingling, and seizure, positive for headache All other systems are negative. Exam: 01:08 ECG was reviewed by the Attending Physician. EKG time 0006 on 04/12/2023, normal sinus sp4 rhythm no ST elevation or depression, no ectopy, overall normal EKG 01:25 Constitutional: This is a well developed, well nourished patient who is awake, alert, sp4 positive for frail elderly female uncomfortable appearing but nontoxic-appearing. No lateralizing deficits, ambulatory with assistance. Head/Face: Normocephalic, atraumatic. Eyes: extra-ocular motions intact. Lids and lashes normal. Cornea within normal limits. Periorbital areas with no swelling, redness, or edema. Right eye exam positive for hazy cornea, conjunctival erythema, mid dilated and unreactive pupil on the right side, patient is able to discriminate light and dark out of her right eye but otherwise vision is lost.. Left eye examination is normal, right eye pressure too high to register on a Jonathan-Pen. Left eye pressure is 32. ENT: Nares patent. No nasal discharge, no septal abnormalities noted. Tympanic membranes are normal and external auditory canals are clear. Oropharynx with no redness, swelling, or masses, exudates, or evidence of obstruction, uvula midline. Mucous membranes moist. Neck: Trachea midline, no thyromegaly or masses palpated, and no cervical lymphadenopathy. Supple, full range of motion without nuchal rigidity, or vertebral point tenderness. Chest/axilla: Normal chest wall appearance and motion. Nontender with no deformity. No lesions are appreciated. Cardiovascular: Regular rate and rhythm with a normal S1 and S2. No gallops, murmurs, or rubs. Normal PMI, no JVD. No pulse deficits. Respiratory: Lungs have equal breath sounds bilaterally, clear to auscultation and percussion. No rales, rhonchi or wheezes noted. No increased work of breathing, no retractions or nasal flaring. Abdomen/GI: Soft, non-tender, with normal bowel sounds. No distension or tympany. No guarding or rebound. No evidence of tenderness throughout. Back: No spinal tenderness. No costovertebral tenderness. Skin: Warm, dry with normal turgor. Normal color with no rashes, no lesions, and no evidence of cellulitis. MS/ Extremity: Pulses equal, no cyanosis. Neurovascular intact. Full, normal range of motion. Neuro: Awake and alert, GCS 15, oriented to person, place, time, and situation. Cranial nerves II-XII grossly intact. Motor strength 5/5 in all extremities. Sensory grossly intact. Psych: Awake, alert, with orientation to person, place and time. Behavior, mood, and affect are within normal limits 02:55 Eyes: Intraocular pressure: Right eye pressure too high to register on the Jonathan-Pen. sp4 Left eye pressure 32. Vital Signs: 04/11 23:56 BP 168 / 90; Pulse 78; Resp 16; Temp 98.2(O); Pulse Ox 99% on R/A; Weight 55.79 kg (R); kl Height 5 ft. 0 in. ; Pain 10; 04/12 01:13 BP 153 / 90; Pulse 87; Resp 16; Pulse Ox 95% on R/A; jb4 02:15 BP 147 / 91; Pulse 92; Resp 16; Pulse Ox 98% on R/A; jb4 03:00 BP 143 / 92; Pulse 95; Resp 16; Pulse Ox 94% on R/A; jb4 04/11 23:56 Body Mass Index 24.02 (55.79 kg, 152.4 cm) 04/11 23:56 Pain Scale: Adult Billie Coma Score: 01:28 Eye Response: spontaneous(4). Motor Response: obeys commands(6). Verbal Response: sp4 oriented(5). Total: 15. MDM: 04/11 23:56 Patient medically screened. sp4 04/12 01:07 ED course: EXAM: XR Chest, 1 View CLINICAL HISTORY: The patient is 77 years old and is sp4 Female; dizziness TECHNIQUE: Frontal view of the chest. COMPARISON: No relevant prior studies available. FINDINGS: LUNGS: Unremarkable. No consolidation. PLEURAL SPACE: Unremarkable. No pneumothorax. HEART: Unremarkable. No cardiomegaly. MEDIASTINUM: Unremarkable. BONES/JOINTS: Multilevel degenerative change of the spine is present. UPPER ABDOMEN: Unremarkable as visualized. IMPRESSION: No acute cardiopulmonary process.. ED course: EXAM: CT Head Without Intravenous Contrast CLINICAL HISTORY: The patient is 77 years old and is Female; headache acute TECHNIQUE: Axial computed tomography images of the head/brain without intravenous contrast. Sagittal and coronal reformatted images were created and reviewed. This CT exam was performed using one or more of the following dose reduction techniques: automated exposure control, adjustment of the mA and/or kV according to patient size, and/or use of iterative reconstruction technique. COMPARISON: No relevant prior studies available. FINDINGS: BRAIN: There is diffuse cerebral atrophy present, consistent with this patient's age. There is patchy hypoattenuation of the deep white matter which is non-specific, but most likely owing to chronic small vessel ischemic change in a patient of this age group. No intracranial hemorrhage, mass effect or midline shift is noted. There are no extra-axial fluid collections. The saldana-white differentiation is maintained. There is no cerebral edema. VENTRICLES: Unremarkable. No ventriculomegaly. BONES/JOINTS: No acute fracture. SOFT TISSUES: Unremarkable. SINUSES: Minimal fluid within the right maxillary sinus is present. The remainder of the paranasal sinuses are clear. MASTOID AIR CELLS: Unremarkable as visualized. No mastoid effusion. ORBITS: Unremarkable as visualized. IMPRESSION: 1. Right maxillary sinus disease. 2. Age-related atrophy and chronic white matter ischemic changes, with no evidence of an acute intracranial abnormality. 01:28 Data reviewed: vital signs, nurses notes, old medical records, lab test result(s), EKG, sp4 radiologic studies, CT scan, plain films. 02:14 ED course: . ED course: Likely Primary angle closure glaucoma is caused by contact sp4 between the iris and trabecular meshwork, which in turn obstructs outflow of the aqueous humor from the eye. In some cases, pressure may rapidly build up in the eye, causing pain and redness (symptomatic, or so-called "acute" angle closure). On exam Right pupil is mid-dilated and unresponsive to light, cornea edematous (cloudy), There is only light and dark discrimination by the eye, there is redness, and pain. . 02:57 Differential diagnosis: epidural hematoma, glaucoma, hypoglycemia, migraine, subdural sp4 hematoma, tension headache, vasomotor headache. ED course: Initial CT head is negative, CT head with angiography is pending. Further examination patient was lotta to have unreactive right pupil which is consistent with acute angle-closure glaucoma. Patient has light and dark discrimination from the right eye but otherwise vision is lost. Right eye pressure too high to register on a Jonathan-Pen. Patient was discussed with Dr. Miller who is control clerk head at [facility]. Who agreed to see patient in consultation. Patient was discussed with director [facility] at [facility] who agreed to accept patient to [facility] without telemetry. Patient at this time is stable for transfer. . 03:05 ED course: As far as medical management we have monitorable IV available acetazolamide sp4 p.o. available, but we do not have atenolol or apraclonidine available. . 04/11 23:55 Order name: Basic Metabolic Panel; Complete Time: 01:06 04/11 23:55 Order name: CBC with Diff; Complete Time: 01:06 [facility] 04/11 23:55 Order name: LFT's; Complete Time: 01:06 04/11 23:55 Order name: Magnesium; Complete Time: 01:06 04/11 23:55 Order name: NT PRO-BNP; Complete Time: 01:06 04/11 23:55 Order name: PT-INR; Complete Time: 01:06 04/11 23:55 Order name: Troponin HS; Complete Time: 01:06 04/12 02:55 Order name: SARS RAPID 04/11 23:55 Order name: XRAY Chest (1 view) 04/11 23:56 Order name: CT Head Brain wo Cont 04/12 01:15 Order name: CT Head Angio 04/12 01:15 Order name: CT Neck Angio 04/11 23:55 Order name: EKG; Complete Time: 23:56 04/11 23:55 Order name: Cardiac monitoring; Complete Time: 00:20 04/11 23:55 Order name: EKG - Nurse/Tech; Complete Time: 00:10 04/11 23:55 Order name: IV Saline Lock; Complete Time: 00:20 04/11 23:55 Order name: Labs collected and sent; Complete Time: 00:20 04/11 23:55 Order name: O2 Per Protocol; Complete Time: 00:20 04/11 23:55 Order name: O2 Sat Monitoring; Complete Time: 00:20 EC:08 Rate is 78 beats/min. Rhythm is regular, Normal Sinus Rhythm. QRS Weed is Normal. MO sp4 interval is normal. QRS interval is normal. QT interval is normal. T waves are Flattened in leads V1, V2, V3, V4, V5, V6. No ST changes noted. Clinical impression: No evidence of ischemia. Interpreted by me. Administered Medications: 00:20 Drug: Ketorolac IVP 30 mg Route: IVP; Site: right antecubital; jb4 00:20 Drug: NS 0.9% IV 500 ml Route: IV; Rate: bolus; Site: right antecubital; jb4 00:20 Drug: diphenhydrAMINE IVP 25 mg Route: IVP; Site: right antecubital; jb4 00:20 Drug: metoCLOPramide IVP 10 mg Route: IVP; Site: right antecubital; jb4 01:34 Drug: morphine IVP or IV 4 mg Route: IVP; Infused Over: 4 mins; Site: right antecubital;ll3 01:34 Drug: Promethazine PO 25 mg Route: PO; ll3 02:14 Drug: Tetracaine Ophthalmic Drops 0.5 % 1 drops {Note: Administered by ER provider.} jb4 Route: Ophthalmic; Site: both eyes; 02:14 Not Given (Medication is unavailable): timoloL Drops 0.5 % 1 drops Topical once jb4 02:14 Drug: acetaZOLAMIDE PO 500 mg Route: PO; jb4 02:14 Not Given (Medication is unavailable): Apraclonidine Drops 1 % 1 drops Ophthalmic once; jb4 as a single dose 02:30 Drug: Isosorbide Mononitrate Extended Release 24 hour Tablet 60 mg Route: PO; jb4 02:58 Drug: Mannitol IV 20% 1 g/kg {Note: 60 gms to administer in 30 minutes 300cc to infuse kl at 600cc/hr.} Volume: 500 ml; Route: IV; Rate: calculated rate; Site: right antecubital; 03:32 Follow up: IV Status: Completed infusion; IV Intake: 300ml kl Disposition Summary: 04/12/23 03:05 Transfer Ordered Transfer Location: [facility] sp4 Reason: Higher level of care sp4 Condition: Fair sp4 Problem: new sp4 Symptoms: are unchanged sp4 Accepting Physician: Angela FRANKS with [facility] (04/12/23 03:42) jb4 Diagnosis - Acute angle-closure glaucoma, right eye sp4 - Acute headache and vomiting, primary angle-closure glaucoma sp4 Forms: - Medication Reconciliation Form sp4 - SBAR form sp4 Signatures: Dispatcher [employer] EDMS Willard, KristenLINDA campuzano RN, James, RN RN jb4 Luis Enrique Rubio RN RN ll3 Tom Mcelroy MD MD sp4 Corrections: (The following items were deleted from the chart) 02:57 01:25 Constitutional: This is a well developed, well nourished patient who is awake, sp4 alert, positive for frail elderly female uncomfortable appearing but nontoxic-appearing. No lateralizing deficits, ambulatory with assistance. Head/Face: Normocephalic, atraumatic. Eyes: Pupils equal round and reactive to light, extra-ocular motions intact. Lids and lashes normal. Conjunctiva and sclera are not injected. Cornea within normal limits. Periorbital areas with no swelling, redness, or edema. ENT: Nares patent. No nasal discharge, no septal abnormalities noted. Tympanic membranes are normal and external auditory canals are clear. Oropharynx with no redness, swelling, or masses, exudates, or evidence of obstruction, uvula midline. Mucous membranes moist. Neck: Trachea midline, no thyromegaly or masses palpated, and no cervical lymphadenopathy. Supple, full range of motion without nuchal rigidity, or vertebral point tenderness. Chest/axilla: Normal chest wall appearance and motion. Nontender with no deformity. No lesions are appreciated. Cardiovascular: Regular rate and rhythm with a normal S1 and S2. No gallops, murmurs, or rubs. Normal PMI, no JVD. No pulse deficits. Respiratory: Lungs have equal breath sounds bilaterally, clear to auscultation and percussion. No rales, rhonchi or wheezes noted. No increased work of breathing, no retractions or nasal flaring. Abdomen/GI: Soft, non-tender, with normal bowel sounds. No distension or tympany. No guarding or rebound. No evidence of tenderness throughout. Back: No spinal tenderness. No costovertebral tenderness. Skin: Warm, dry with normal turgor. Normal color with no rashes, no lesions, and no evidence of cellulitis. MS/ Extremity: Pulses equal, no cyanosis. Neurovascular intact. Full, normal range of motion. Neuro: Awake and alert, GCS 15, oriented to person, place, time, and situation. Cranial nerves II-XII grossly intact. Motor strength 5/5 in all extremities. Sensory grossly intact. Psych: Awake, alert, with orientation to person, place and time. Behavior, mood, and affect are within normal limits sp4 03:42 03:05 Angela FRANKS with [facility] sp4 jb4
[2023-04-12 03:50] VITALS: TEMP 98.2
[2023-04-12 03:55] VITALS: BP 143/92; O2SAT 94
[2023-04-12 04:24] LABS: SARS-CoV-2 Antigen Rapid Res Negative (Negative)
--- NOTE | 2023-04-12 13:18 | EKG ---
Test Date: 2023-04-12 Test Time: 00:06:01 Spring Upholsterer: RICK MEASUREMENT RESULTS: Intervals: Rate: 78 [place]: 160 QRSD: 80 QT: 366 QTc: 417 [place]: P: 73 [place]: 160 QRS: 12 T: 124 INTERPRETIVE STATEMENTS: Normal sinus rhythm Nonspecific T wave abnormality Abnormal ECG No previous ECG available for comparison Electronically Signed On 04-12-23 13:18:06 CDT by Vinicio Wilson
--- NOTE | 2023-04-12 14:31 | RAD REPORT ---
EXAM DESCRIPTION: CT Angiography Head With Intravenous Contrast CLINICAL HISTORY: The patient is 77 years old and is Female; severe headache, eval for aneurism TECHNIQUE: Axial computed tomographic angiography images of the head with intravenous contrast. Sa gittal and coronal reformatted images were created and reviewed. This CT exam was performed using o ne or more of the following dose reduction techniques: automated exposure control, adjustment of th e mA and/or kV according to patient size, and/or use of iterative reconstruction technique. MIP rec onstructed images were created and reviewed. COMPARISON: No relevant prior studies available. FINDINGS: Right internal carotid artery: No acute findings. Intracranial segment is patent with no significant stenosis. No aneurysm. Right anterior cerebral artery: Hypoplastic right A1 segment. No occlusion or significant stenosis. No aneurysm. Right middle cerebral artery: Unremarkable. No occlusion or significant stenosis. No aneurysm . Right posterior cerebral artery: Functional origin right [employer]. No occlusion or significant stenosis. No aneurysm. Right vertebral artery: Unremarkable as visualized. Left internal carotid artery: No acute findings. Intracranial segment is patent with no signifi cant stenosis. No aneurysm. Left anterior cerebral artery: Unremarkable. No occlusion or significant stenosis. No aneurys m. Left middle cerebral artery: Unremarkable. No occlusion or significant stenosis. No aneurysm. Left posterior cerebral artery: Unremarkable. No occlusion or significant stenosis. No aneury sm. Left vertebral artery: Unremarkable as visualized. Basilar artery: Unremarkable. No occlusion or significant stenosis. No aneurysm. Dural sinuses/cerebral veins: Relatively decreased opacification of the right cavernous sinus com pared to the left. * A single impression for all exams can be found at the end of this report EXAM DESCRIPTION: CT Angiography Neck With Intravenous Contrast CLINICAL HISTORY: The patient is 77 years old and is Female; severe headache, eval for aneurism TECHNIQUE: Routine carotid CT angiography protocol was performed with intravenous contrast. NASCET criteria using the distal ICAs for comparison were used for evaluation of stenoses. Sagittal and c oronal reformatted images were created and reviewed. This CT exam was performed using one or more o f the following dose reduction techniques: automated exposure control, adjustment of the mA and/or kV according to patient size, and/or use of iterative reconstruction technique. MIP reconstructed i mages were created and reviewed. COMPARISON: None. FINDINGS: VASCULATURE: Right common carotid artery: Unremarkable. No occlusion or significant stenosis. No dissectio n. Right internal carotid artery: Unremarkable. Extracranial segment is patent with no occlusion o r significant stenosis. No dissection. Right external carotid artery: Unremarkable. No occlusion. Right vertebral artery: Unremarkable. No occlusion or significant stenosis. No dissection. Left common carotid artery: Unremarkable. No occlusion or significant stenosis. No dissection . Left internal carotid artery: Unremarkable. Extracranial segment is patent with no occlusion or significant stenosis. No dissection. Left external carotid artery: Unremarkable. No occlusion. Left vertebral artery: Unremarkable. No occlusion or significant stenosis. No dissection. NECK: Bones/joints: Unremarkable. Soft tissues: Unremarkable. Lung apices: Clear. CAROTID STENOSIS REFERENCE USING NASCET CRITERIA: % ICA stenosis = (1 - narrowest ICA diameter/diameter of distal cervical ICA) x 100. Mild - <50% stenosis. Moderate - 50-69% stenosis. Severe - 70-94% stenosis. Near occlusion - 95-99% stenosis. Occluded - 100% stenosis. * A single impression for all exams can be found at the end of this report IMPRESSION: CT Angiography Head With Intravenous Contrast: 1. No evidence of aneurysm. 2. Relatively decreased opacification of the right cavernous sinus compared to the left. Consider CT venogram for further evaluation if there is any concern for cavernous sinus thrombosis. Electronically signed by: Loc Odonnell MD 04/12/2023 4:40 AM CDT Due to temporary technical issues with the PACS/Fluency reporting system, reports are being signed by the in house radiologists without review as a courtesy to insure prompt reporting. The interpreting radiologist is fully responsible for the content of the report.
--- NOTE | 2023-04-12 14:35 | RAD REPORT ---
EXAM DESCRIPTION: XR Chest, 1 View CLINICAL HISTORY: The patient is 77 years old and is Female; dizziness TECHNIQUE: Frontal view of the chest. COMPARISON: No relevant prior studies available. FINDINGS: LUNGS: Unremarkable. No consolidation. PLEURAL SPACE: Unremarkable. No pneumothorax. HEART: Unremarkable. No cardiomegaly. MEDIASTINUM: Unremarkable. BONES/JOINTS: Multilevel degenerative change of the spine is present. UPPER ABDOMEN: Unremarkable as visualized. IMPRESSION: No acute cardiopulmonary process. Electronically signed by: Julia Malhotra MD 04/12/2023 12:40 AM CDT Due to temporary technical issues with the PACS/Fluency reporting system, reports are being signed by the in house radiologists without review as a courtesy to insure prompt reporting. The interpreting radiologist is fully responsible for the content of the report.
--- NOTE | 2023-04-12 14:48 | RAD REPORT ---
EXAM DESCRIPTION: CT Head Without Intravenous Contrast CLINICAL HISTORY: The patient is 77 years old and is Female; headache acute TECHNIQUE: Axial computed tomography images of the head/brain without intravenous contrast. Sagitt al and coronal reformatted images were created and reviewed. This CT exam was performed using one o r more of the following dose reduction techniques: automated exposure control, adjustment of the mA and/or kV according to patient size, and/or use of iterative reconstruction technique. COMPARISON: No relevant prior studies available. FINDINGS: BRAIN: There is diffuse cerebral atrophy present, consistent with this patient's age. There is patchy hypoattenuation of the deep white matter which is non-specific, but most likely owing to chronic small vessel ischemic change in a patient of this age group. No intracranial hemorrhage , mass effect or midline shift is noted. There are no extra-axial fluid collections. The saldana-white d ifferentiation is maintained. There is no cerebral edema. VENTRICLES: Unremarkable. No ventriculomegaly. BONES/JOINTS: No acute fracture. SOFT TISSUES: Unremarkable. SINUSES: Minimal fluid within the right maxillary sinus is present. The remainder of the paranasa l sinuses are clear. MASTOID AIR CELLS: Unremarkable as visualized. No mastoid effusion. ORBITS: Unremarkable as visualized. IMPRESSION: 1. Right maxillary sinus disease. 2. Age-related atrophy and chronic white matter ischemic changes, with no evidence of an acute intr acranial abnormality. Electronically signed by: Julia Malhotra MD 04/12/2023 12:47 AM CDT Due to temporary technical issues with the PACS/Fluency reporting system, reports are being signed by the in house radiologists without review as a courtesy to insure prompt reporting. The interpreting radiologist is fully responsible for the content of the report.
== END 2023-04-12 03:42 | disposition short-term general hospital (02) ==
LOC: ER 23:41
DX: H40.211 Acute angle-closure glaucoma, right eye (principal); R11.10 Vomiting, unspecified; Z20.822 Contact with and (suspected) exposure to COVID-19; I10 Essential (primary) hypertension
CPT/HCPCS: 96365; 93005; 85025; 80048; 36415; 83735; 85610; 80076; 84484; 83880; 70450; 70496; 70498; 71045; 96375; 99285; 87811; Q9967; Q0169; J2765; J1200; J7040

== ENCOUNTER 2023-06-26 06:44 | Day surgery (SDC) | payer OTHER ==
[2023-06-22 10:19] LABS: Potassium 3.2 mEq/L (3.5-5.1)
[2023-06-26] MEDS ORDERED: MOXIFLOXACIN HCL 10 DROPS/ML **OR USE OPTH ONE (07:02)
[2023-06-26] MEDS ORDERED: KETOROLAC OPTHALMIC 5 ML BOT ONE (07:03)
[2023-06-26] MEDS ORDERED: TROPICAMIDE 1% OPTH 3 ML BOT ONE (07:03)
[2023-06-26] MEDS ORDERED: PHENYLEPHRINE 10% OPTH 5ML ONE (07:03)
[2023-06-26] MEDS ORDERED: CYCLOPENTOLATE 2% OPTH 2 ML ONE (07:04)
[2023-06-26] MEDS ORDERED: Ringers Lactate 1,000 ML IV ONE (07:04)
[2023-06-26] MEDS ORDERED: BALANCED SALT IRRIG PLAIN 500 ML IRR ONE (07:14)
[2023-06-26] MEDS ORDERED: BSS OPTHALMIC SOL 15 ML OPTH ONE (07:14)
[2023-06-26] MEDS ORDERED: EPINEPHRINE/PF 1 MG/ML AMP ONE (07:14)
[2023-06-26] MEDS ORDERED: DUOVISC 1 KIT OPTH ONE (07:15)
[2023-06-26] MEDS ORDERED: TOBRADEX 0.3-0.1% OPTH OINTMENT ONE (07:16)
[2023-06-26] MEDS ORDERED: FENTANYL CITR 100 MCG/2 ML ONE (07:23)
[2023-06-26] MEDS ORDERED: MIDAZOLAM HCL 2 MG/2 ML INJ ONE (07:23)
[2023-06-26] MEDS ORDERED: propofoL 200 MG/20 ML VIAL IV ONE (07:23)
[2023-06-26] MEDS ORDERED: LIDOCAINE 2% MPF 5 ML VIAL ONE (07:24)
[2023-06-26] MEDS ORDERED: ONDANSETRON 4 MG/2 ML VIAL ONE (07:25)
[2023-06-26] MEDS ORDERED: POVIDONE-IODINE 5% EYE DROPS ONE (07:37)
[2023-06-26] MEDS ORDERED: dexAMETHasone 4 MG/ML VIAL ONE (08:16)
[2023-06-26] MEDS ORDERED: EPHEDRINE SULF 50 MG/ML VIAL ONE (08:26)
[2023-06-26 09:51] VITALS: TEMP 97.4; O2SAT 99
[2023-06-26] MEDS ORDERED: ACETAMINOPHEN 325 MG TABLET ONE (10:27)
[2023-06-26 10:54] VITALS: BP 154/80
--- NOTE | 2023-06-26 20:18 | OP ---
Date of Procedure: 06/26/2023 Surgeon: Roberto Almendarez MD Account Executive Key Accounts: None. Preoperative Diagnosis: Cataract and glaucoma, right eye. Postoperative Diagnosis: Cataract and glaucoma, right eye. Procedure Performed: Cataract extraction, right eye with placement of intraocular lens; canaloplasty with OMNI system; and placement of Hydrus, right eye. Description Of Procedure: After being properly identified in the preoperative holding area, the patient was taken back to the operating room, where a time-out was performed. The patient was then prepped and draped in normal sterile fashion. Examination of the eye underneath the operating microscope revealed a patent PI at the 1 o'clock position and a moderately dilated pupil with posterior synechiae at the 1 o'clock position. The globe was grasped with a pair of 0.12 forceps and paracentesis wounds were made in the 12 o'clock and 6 o'clock position and Viscoat was added into the anterior chamber, which broke the posterior synechiae. The main phaco wound was made using a 2.4 mm keratome in a triplanar fashion and a cystotome was used to initiate and later withdrawal of forceps used to complete the anterior capsulotomy. Hydrodissection and hydrodelineation of the lens were carried out resulting in free rotation of the lens nucleus and thereafter, the lens was removed in a standard divide and conquer technique. Once all 4 quadrants have been removed, the phaco handpiece was exchanged for bimanual irrigation aspiration handpieces and all cortical material was removed. During the removal of the cortical material, it was noted that there was zonular dialysis from approximately 6-9 o'clock and therefore, the decision to place a capsular tension ring was made. The capsular bag was filled with Provisc and a RingJect 12-10, serial number [id number], with manually placed into the capsular bag. Please note that this was the only size available at this facility. The lens, a model DCB00, power 24.5 diopter, serial number [id number], was then injected into the capsular bag and centered well. The patient's head was then rotated approximately 45 degrees to the left and the microscope tilted as well. Visualization of the trabecular meshwork was had using iPrism system and a good visualization of the trabecular meshwork was seen and an OMNI device filled with Healon was used to viscodilate the system 360 degrees. Thereafter, a Hydrus microstent was placed in the superior nasal quadrant. The head was then rotated back into its previous position and viscoelastic material removed using the bimanual irrigation aspiration system. There was some hemorrhage and bleeding following the placement of the OMNI system, but normal and is expected and this was removed as much as possible. The wounds were hydrated, but additional sutures were felt to be necessary and a 10-0 suture placed through the paracentesis wound superiorly as well as three 10-0 interrupted sutures through the main phaco incision wound temporally. The pupil was round and in good position with no active bleeding and air bubbles added to the anterior chamber and the procedure concluded with the patient tolerating the procedure well, having been under general anesthesia the entire time. There were no complications. The wound leakage in the iris prolapse did necessitate suturing, but this is not a complication. The patient is to follow up with myself, Dr. Roberto Almendarez, tomorrow morning. PANCHITOG/MODL Voice ID: [id number] Report ID: [id number] DEVORAH
== END 2023-06-26 10:45 | disposition home or self-care (01) ==
LOC: OR 06:44
PROVIDERS: ATTEND Ophthalmology
PROC: 087X0DZ Dilation of Right Lacrimal Duct with Intraluminal Device, Open Approach (ICD-10-PCS; 2023-06-26)
PROC: 08RJ30Z Replacement of Right Lens with Intraocular Telescope, Percutaneous Approach (ICD-10-PCS; principal; 2023-06-26 07:30)
PROC: 08RJ3JZ Replacement of Right Lens with Synthetic Substitute, Percutaneous Approach (ICD-10-PCS; 2023-06-26 07:30)
DX: H25.11 Age-related nuclear cataract, right eye (principal); H25.011 Cortical age-related cataract, right eye; H40.1132 Primary open-angle glaucoma, bilateral, moderate stage
CPT/HCPCS: 66982; 66175; 80048; 36415; J2704; J1100; J0171; J1885; J2001; J2250; J3010; J2405; J7120

== ENCOUNTER 2023-07-10 06:31 | Day surgery (SDC) | payer OTHER ==
[2023-07-10] MEDS ORDERED: MOXIFLOXACIN HCL 10 DROPS/ML **OR USE OPTH ONE (07:03)
[2023-07-10] MEDS ORDERED: CYCLOPENTOLATE 2% OPTH 2 ML ONE (07:04)
[2023-07-10] MEDS ORDERED: PHENYLEPHRINE 2.5% OPTH 2 ML ONE (07:04)
[2023-07-10] MEDS ORDERED: TROPICAMIDE 1% OPTH 3 ML BOT ONE (07:04)
[2023-07-10] MEDS ORDERED: KETOROLAC OPTHALMIC 5 ML BOT ONE (07:04)
[2023-07-10] MEDS ORDERED: PHENYLEPHRINE 2.5% OPTH 2 ML OPTH ONE (07:05)
[2023-07-10] MEDS ORDERED: MOXIFLOXACIN HCL 0.5% 3ML OPTH OPTH ONE (07:05)
[2023-07-10] MEDS ORDERED: TROPICAMIDE 1% OPTH 3 ML BOT OPTH ONE (07:05)
[2023-07-10] MEDS ORDERED: KETOROLAC OPTHALMIC 5 ML BOT OPTH ONE (07:05)
[2023-07-10] MEDS ORDERED: BSS OPTHALMIC SOL 15 ML OPTH ONE (07:10)
[2023-07-10] MEDS ORDERED: EPINEPHRINE/PF 1 MG/ML AMP ONE (07:10)
[2023-07-10] MEDS ORDERED: TOBRADEX 0.3-0.1% OPTH OINTMENT ONE (07:10)
[2023-07-10] MEDS: Ringers Lactate 1,000 ML IV ONE (07:10)
[2023-07-10] MEDS ORDERED: DUOVISC 1 KIT OPTH ONE (07:11)
[2023-07-10] MEDS ORDERED: BALANCED SALT IRRIG PLAIN 500 ML IRR ONE (07:11)
[2023-07-10] MEDS ORDERED: FENTANYL CITR 100 MCG/2 ML ONE (07:32)
[2023-07-10] MEDS ORDERED: LIDOCAINE 2% MPF 5 ML VIAL ONE (07:32)
[2023-07-10] MEDS ORDERED: ONDANSETRON 4 MG/2 ML VIAL ONE (07:32)
[2023-07-10] MEDS ORDERED: propofoL 200 MG/20 ML VIAL IV ONE (07:32)
[2023-07-10] MEDS ORDERED: POVIDONE-IODINE 5% EYE DROPS ONE (07:46)
[2023-07-10] MEDS ORDERED: ACETAMINOPHEN 325 MG TABLET ONE (09:44)
--- NOTE | 2023-07-10 09:46 | OP ---
Date of Procedure: 07/10/2023 Surgeon: Roberto Almendarez MD Quality Lead: None. Preoperative Diagnosis: Cataract, left eye. Glaucoma, left eye. Postoperative Diagnosis: Cataract, left eye. Glaucoma, left eye. Procedure Performed: Complex cataract extraction, left eye with placement of intraocular lens, capsular tension ring, canaloplasty, and viscodilation using Omni surgical system and placement of Hydrus Microstent. Description Of Procedure: After being properly identified in the preoperative holding area, patient was taken back to the operating room where a time-out was performed. The patient was then prepped and draped in the normal sterile fashion. Examination of the eye underneath the operating microscope revealed a well dilated pupil and a good red reflex. A paracentesis wound was made in the 6 o'clock and 12 o'clock position using a 1.0 mm blade and Viscoat was used to fill the anterior chamber. The main phaco incision wound was made in a triplane fashion using a 2.4 mm keratome and a continuous curvilinear capsulorrhexis was created using a cystotome and completed with an Utrata forceps. Hydrodissection and hydrodelineation of the lens was carried out. We proceeded with lens removal using a standard divide and conquer technique. Once all 4 quadrants had been removed, the phaco handpiece was exchanged for bimanual irrigation and aspiration handpieces and all cortical material was removed. During the cortical removal phase, zonular laxity was noted and the decision to place a capsular tension ring was made. Of note, the patient had a capsular tension ring placed on her fellow eye, so this was not a surprise. A capsular tension ring made by [employer] model ReForm, serial #[id number] was placed into the capsular bag manually, guided by Tenant tying forceps later with a Sinskey hook and Kuglan hook in order to ensure that it fully filled within the capsular bag. This was done after inflation of the bag with Provisc. The intraocular lens was then also delivered into the bag. The intraocular lens was a model DCB00 made by [employer], power 25.0 diopter, serial #[id number]. Thereafter, the patient's head was turned 45 degrees to the right and the microscope was tilted 45 degrees as well and a gonioprism placed on the outer part of the cornea with a coupling agent and excellent visualization of the angle and trabecular meshwork were had. The Omni device was loaded with Healon and then used to viscodilate the inferior angle and a canaloplasty was carried out 360 degrees. Thereafter, the Hydrus Microstent was implanted into the trabecular meshwork in the 9 to 12 o'clock position. The head was then turned back into place and the remaining viscoelastic material removed using a coaxial I and A handpiece. The wounds were hydrated and found to be watertight and with the lens centering nicely, the procedure concluded. The patient tolerated the procedure well having been under general anesthesia the entire time. There was no specimen sent. Blood loss was less than 1 mL. The patient was pressure patched over TobraDex ointment. She is to follow up with myself, Dr. Roberto Almendarez tomorrow morning. PANCHITOG/KANWALL Voice ID: [id number] Report ID: [id number] MTDD
[2023-07-12 14:44] VITALS: BP 143/78; TEMP 98; O2SAT 98
== END 2023-07-10 10:05 | disposition home or self-care (01) ==
LOC: OR 06:31
PROVIDERS: ATTEND Ophthalmology
PROC: 08RK30Z Replacement of Left Lens with Intraocular Telescope, Percutaneous Approach (ICD-10-PCS; 2023-07-10)
PROC: 087Y0DZ Dilation of Left Lacrimal Duct with Intraluminal Device, Open Approach (ICD-10-PCS; principal; 2023-07-10 07:30)
DX: H25.12 Age-related nuclear cataract, left eye (principal); H40.1122 Primary open-angle glaucoma, left eye, moderate stage; H25.012 Cortical age-related cataract, left eye
CPT/HCPCS: 36415; 80048; J0171; J1885; J2001; J2405; J2704; J3010; J7120

== ENCOUNTER → 2023-09-30 | Emergency (ER) | payer OTHER ==
[~2023-09-30] MED LIST: ACYCLOVIR 400 MG TABLET ONE; HYDROCODONE/APAP 10/325 TAB ONE; IBUPROFEN 400 MG TAB ONE; ONDANSETRON 4 MG (ODT) TAB ONE; methocarbamoL 750 MG TAB ONE
[2023-09-30 02:41] LABS: Lymphocytes % 17.1 % (15.3-44.8); MCV 89.3 fL (80-100); MPV 7.7 fL (7.6-11.3); Platelets 232 thou/uL (152-406); RBC Red Blood Cell Count 4.26 M/uL (3.86-4.86)
[2023-09-30 02:47] LABS: Specific Gravity 1.007 (1.005-1.030); Urine Bacteria None Seen /HPF (<20); Urine Bilirubin NEGATIVE (Negative); Urine Blood Negative (Negative); Urine Clarity Clear (Clear); Urine Color Colorless (Yellow); Urine Glucose NEGATIVE (Negative); Urine Protein NEGATIVE (Negative); Urine RBC <5 /HPF (None Seen); Urine Urobilinogen Normal (Normal); Urine pH 5.5 (5.0-7.0)
[2023-09-30 02:48] LABS: Protime INR 1.03
[2023-09-30 02:54] LABS: SARS-CoV-2 Antigen Rapid Res Negative (Negative)
[2023-09-30 03:02] LABS: Albumin 3.4 g/dL (3.4-5.0); Bilirubin Direct 0.1 mg/dL (0-0.2); Bilirubin Indirect, Calculated 0.3 mg/dL (0.2-0.8); Bilirubin Total 0.4 mg/dL (0.2-1.0); Magnesium 2.4 mg/dL (1.6-2.4); Potassium 3.7 mEq/L (3.5-5.1); Protein, Total 7.3 g/dL (6.4-8.2); Troponin High Sensitivity 4.5 pg/mL (<58.9)
--- NOTE | 2023-09-30 05:44 | EDPHYS ---
Physician Documentation [facility] Name: Patty Ty Age: 77 yrs Sex: Female : 1945 Arrival Date: 09/30/2023 Time: 01:32 Bed 6 Private MD: ED Physician Tom Mcelroy HPI: 09/30 01:56 This 77 yrs old Female presents to ER via Ambulatory with complaints of BACK sp4 SWELLING ON RIGHT SIDE, Back Pain, Shoulder Pain. 01:57 PMH - Allergies: 04/11 No Known Allergies; Home Meds: 23:58 Advair Diskus Inhl; sp4 omeprazole 20 mg Oral capsule,delayed release (e.c.) daily PMHx: Asthma; GERD; Hypertension; PSHx: None;. 05:50 77-year-old female presents with worsening right chest wall pain, right axillary pain sp4 and blistering rash to the right chest wall anterior and posterior location. Patient states pain has begun 7 days ago and the rash began 2 days ago. Patient speaks Bulgarian only and family has assisted with's translation. . Historical: - Allergies: 01:54 No Known Allergies; lg3 - Home Meds: 01:54 budesonide inhalation [Active]; Flovent Inhl [Active]; Ventolin Nebulizer [Active]; lg3 guaifenesin Oral [Active]; Tezspire 210 mg/1.91 mL (110 mg/mL) subcutaneous Pen Injector every 4 weeks for severe persistent asthma [Active]; omeprazole 20 mg Oral capsule daily [Active]; - PMHx: 01:54 Asthma; GERD; Hypertension; lg3 - PSHx: 01:54 None; lg3 - Immunization history:: Adult Immunizations unknown, Client reports receiving the 2nd dose of the Covid vaccine, Flu vaccine is not up to date. - Social history:: Smoking status: Patient denies any tobacco usage or history of. Patient/guardian denies using alcohol, street drugs. - Family history:: not pertinent. ROS: 05:50 Constitutional: Negative for fever, chills, and weight loss, positive for right chest sp4 wall pain, positive right chest wall blistering rash Eyes: Negative for injury, pain, redness, and discharge, 05:50 All other systems are negative, Exam: 05:50 Constitutional: This is a well developed, well nourished patient who is awake, alert, sp4 and in no acute distress. Positive frail elderly female Head/Face: Normocephalic, atraumatic. Eyes: Pupils equal round and reactive to light, extra-ocular motions intact. Lids and lashes normal. Conjunctiva and sclera are not injected. Cornea within normal limits. Periorbital areas with no swelling, redness, or edema. ENT: Nares patent. No nasal discharge, no septal abnormalities noted. Tympanic membranes are normal and external auditory canals are clear. Oropharynx with no redness, swelling, or masses, exudates, or evidence of obstruction, uvula midline. Mucous membranes moist. Neck: Trachea midline, no thyromegaly or masses palpated, and no cervical lymphadenopathy. Supple, full range of motion without nuchal rigidity, or vertebral point tenderness. Chest/axilla: Normal chest wall appearance and motion. Nontender with no deformity. Right chest wall blistering or rash anterior and posterior chest consistent with acute shingles outbreak Cardiovascular: Regular rate and rhythm with a normal S1 and S2. No gallops, murmurs, or rubs. Normal PMI, no JVD. No pulse deficits. Respiratory: Lungs have equal breath sounds bilaterally, clear to auscultation and percussion. No rales, rhonchi or wheezes noted. No increased work of breathing, no retractions or nasal flaring. Abdomen/GI: Soft, non-tender, with normal bowel sounds. No distension or tympany. No guarding or rebound. No evidence of tenderness throughout. Back: No spinal tenderness. No costovertebral tenderness. There is sacral decubitus ulcer that is covered by the wound VAC. Skin: Warm, dry with normal turgor. Normal color with right chest wall blistering rash in dermatomal distribution consistent with a right chest wall shingles MS/ Extremity: Pulses equal, no cyanosis. Neurovascular intact. Full, normal range of motion. Neuro: Awake and alert, GCS 15, oriented to person, place, time, and situation. Cranial nerves II-XII grossly intact. Motor strength 5/5 in all extremities. Sensory grossly intact. Psych: Awake, alert, with orientation to person, place and time. Behavior, mood, and affect are within normal limits 05:50 ECG was reviewed by the Attending Physician. EKG time 0 225, normal sinus rhythm with sp4 rate of 81, no ST elevation or depression Vital Signs: 01:47 BP 122 / 86; Pulse 85; Resp 17 S; Temp 98.2(O); Pulse Ox 98% on R/A; Weight 54.43 kg lg3 (R); Height 5 ft. 0 in. (R); 02:33 BP 147 / 92; Pulse 83; Resp 16; Pulse Ox 97% on R/A; km8 03:00 BP 135 / 88; Pulse 82; Resp 16; Pulse Ox 98% on R/A; km8 04:00 BP 129 / 77; Pulse 70; Resp 16; Pulse Ox 95% on R/A; km8 05:00 BP 116 / 76; Pulse 67; Resp 16; Pulse Ox 94% on R/A; km8 05:30 BP 130 / 80; Pulse 72; Resp 14; Pulse Ox 96% on R/A; km8 01:47 Body Mass Index 23.44 (54.43 kg, 152.4 cm) lg3 Billie Coma Score: 02:33 Eye Response: spontaneous(4). Motor Response: obeys commands(6). Verbal Response: km8 oriented(5). Total: 15. MDM: 02:09 Patient medically screened. sp4 05:35 ED course: EXAM: XR Chest, 1 View CLINICAL HISTORY: The patient is 77 years old and is sp4 Female; CHEST PAIN TECHNIQUE: Frontal view of the chest. COMPARISON: No relevant prior studies available. FINDINGS: Lungs: Unremarkable. No consolidation. Pleural space: Unremarkable. No pneumothorax. Heart: Unremarkable. Mediastinum: Unremarkable. Normal mediastinal contour. Bones/joints: No acute findings. IMPRESSION: No acute findings in the chest. . 05:58 Differential diagnosis: arthritis, Fatigue Fracture Myeloma Osteoporosis Scoliosis. sp4 Data reviewed: vital signs, nurses notes, lab test result(s), EKG, radiologic studies, plain films. Consideration of Admission/Observation Escalation of care including admission/observation considered. ED course: Exam is consistent with acute shingles outbreak. - right chest wall blistering or rash. Will prescribe Valtrex for 10 days also hydrocodone 10 every 8 hours as needed for pain also ibuprofen as needed for pain and also ondansetron as needed for nausea. Will advise follow-up with field operations supervisor in the next 7 days.. 09/30 02:09 Order name: Basic Metabolic Panel; Complete Time: 05:09/30 02:09 Order name: CBC with Diff; Complete Time: :09/30 02:09 Order name: LFT's; Complete Time: 05:09/30 02:09 Order name: Magnesium; Complete Time: 05:09/30 02:09 Order name: NT PRO-BNP; Complete Time: 05:09/30 02:09 Order name: PT-INR; Complete Time: 05:09/30 02:09 Order name: Troponin HS; Complete Time: 05:09/30 02:10 Order name: Urinalysis W/Microscopic; Complete Time: 05:09/30 02:10 Order name: SARS RAPID; Complete Time: 05:09/30 02:10 Order name: Influenza Screen (a \T\ B); Complete Time: :09/30 02:09 Order name: XRAY Chest (1 view) 09/30 02:09 Order name: EKG; Complete Time: 02:09/30 02:09 Order name: Cardiac monitoring; Complete Time: :09/30 02:09 Order name: EKG - Nurse/Tech; Complete Time: 09/30 02:09 Order name: IV Saline Lock; Complete Time: :09/30 02:09 Order name: Labs collected and sent; Complete Time: 09/30 02:09 Order name: O2 Per Protocol; Complete Time: 09/30 02:09 Order name: O2 Sat Monitoring; Complete Time: : EC:50 Rate is 81 beats/min. Rhythm is regular, Normal Sinus Rhythm. QRS [place] is Normal. NC sp4 interval is normal. QRS interval is normal. QT interval is normal. No Q waves. T waves are Flattened in leads V4, V5, V6. No ST changes noted. Clinical impression: No evidence of ischemia. Interpreted by me. Reviewed by me. Administered Medications: 02:53 Drug: [place] PO 10 mg-325 mg 1 tabs PO once Route: PO; km8 04:31 Follow up: Response: No adverse reaction km8 02:53 Drug: Methocarbamol PO 750 mg PO once Route: PO; 8 04:31 Follow up: Response: No adverse reaction km8 02:53 Drug: Acyclovir PO 800 mg PO once Route: PO; 8 04:31 Follow up: Response: No adverse reaction km8 02:53 Drug: Ondansetron PO 4 mg PO once Route: PO; km8 04:31 Follow up: Response: No adverse reaction km8 02:53 Drug: Ibuprofen PO 400 mg PO once Route: PO; km8 04:31 Follow up: Response: No adverse reaction km8 Disposition Summary: 09/30/23 05:44 Discharge Ordered Problem: new sp4 Symptoms: have improved sp4 Condition: Stable sp4 Diagnosis - Zoster without complications sp4 - Shingles sp4 Followup: sp4 - With: Private Physician - When: 7 - 10 days - Reason: Recheck today's complaints Discharge Instructions: - Discharge Summary Sheet sp4 - Shingles, [id number] sp4 Forms: - Patient Portal Instructions sp4 Prescriptions: - valacyclovir 1 gram Oral tablet - take 1 tablet ORAL route every 12 hours for 10 days; 20 tablet; Refills: 0, sp4 Product Selection Permitted - Ibuprofen 600 mg Oral Tablet - take 1 tablet ORAL route every 6 hours As needed take with food; 30 tablet; sp4 Refills: 0, Product Selection Permitted - ondansetron 8 mg Oral Tablet,disintegrating - take 1 tablet ORAL route every 8 hours; 30 tablet; Refills: 0, Product sp4 Selection Permitted Signatures: Dispatcher [employer] Carmenza Lopez RN RN lg3 Tom Mcelroy MD MD sp4 Mely Suero RN RN km8
--- NOTE | 2023-09-30 05:44 | ER ---
Nurse's Notes [facility] Name: Patty Ty Age: 77 yrs Sex: Female : 1945 Arrival Date: 09/30/2023 Time: 01:32 Bed 6 Private MD: Diagnosis: Zoster without complications;Shingles Presentation: 09/30 01:47 Chief complaint: Patient's son or daughter states: intermittant pain to right armpit lg3 radiating to right upper backand now down into right flank X7days. saw PCP and DX with muscle issue due to coughing from asthma and allergies. began taking nabumetine, ibuprofen, amoxicillin and bromfed with no relief. did xray last week here outpatient but we haven't gotten any results. cough has subsided but the pain is worsening. yesterday i noticed a rash on her back and today i noticed swelling to the right side of her back. Coronavirus screen: Client denies travel out of the [place] in the last 14 days. At this time, the client does not indicate any symptoms associated with coronavirus-19. Ebola Screen: No symptoms or risks identified at this time. Initial Sepsis Screen: Does the patient meet any 2 criteria? No. Patient's initial sepsis screen is negative. Does the patient have a suspected source of infection? No. Patient's initial sepsis screen is negative. Risk Assessment: Do you want to hurt yourself or someone else? Patient reports no desire to harm self or others. Onset of symptoms was September 23, 2023. 01:47 Method Of Arrival: Ambulatory lg3 01:47 Acuity: ARUNA 3 lg3 Triage Assessment: 01:54 General: Appears in no apparent distress. comfortable, Behavior is calm, cooperative. lg3 Pain: Complains of pain in right scapular area and right flank. EENT: No deficits noted. No signs and/or symptoms were reported regarding the EENT system. Neuro: No deficits noted. [place]ijano Agitation-Sedation Scale (RASS): 0 - Alert and Calm Level of Consciousness is awake, alert, obeys commands, Oriented to person, place, time, situation. Cardiovascular: No deficits noted. Denies chest pain, shortness of breath, Capillary refill < 3 seconds Clubbing of nail beds is absent JVD is absent Patient's skin is warm and dry. Respiratory: Reports cough that is persistent Airway is patent Respiratory effort is even, unlabored, Respiratory pattern is regular, symmetrical. GI: No deficits noted. No signs and/or symptoms were reported involving the gastrointestinal system. Abdomen is round non-distended. : No deficits noted. No signs and/or symptoms were reported regarding the genitourinary system. Derm: No deficits noted. No signs and/or symptoms reported regarding the dermatologic system. Skin is intact, is healthy with good turgor, Skin is dry, Skin is normal, Skin temperature is warm. Musculoskeletal: Circulation, motion, and sensation intact. Range of motion: intact in all extremities, Reports pain in back. Historical: - Allergies: :54 No Known Allergies; lg3 - Home Meds: :54 budesonide inhalation [Active]; Flovent Inhl [Active]; Ventolin Nebulizer [Active]; lg3 guaifenesin Oral [Active]; Tezspire 210 mg/1.91 mL (110 mg/mL) subcutaneous Pen Injector every 4 weeks for severe persistent asthma [Active]; omeprazole 20 mg Oral capsule daily [Active]; - PMHx: :54 Asthma; GERD; Hypertension; lg3 - PSHx: :54 None; lg3 - Immunization history:: Adult Immunizations unknown, Client reports receiving the 2nd dose of the Covid vaccine, Flu vaccine is not up to date. - Social history:: Smoking status: Patient denies any tobacco usage or history of. Patient/guardian denies using alcohol, street drugs. - Family history:: not pertinent. Screenin:33 [facility] ED Fall Risk Assessment (Adult) History of falling in the last 3 months, km8 including since admission No falls in past 3 months (0 pts) Confusion or Disorientation No (0 pts) Intoxicated or Sedated No (0 pts) Impaired Gait No (0 pts) Mobility Assist Device Used No (0 pt) Altered Elimination No (0 pt) Score/Fall Risk Level 0 - 2 = Low Risk Oriented to surroundings, Maintained a safe environment, Educated pt \T\ family on fall prevention, incl call for assistance when getting out of bed, Assessed \T\ reinforced patient's understanding of fall precautions. Abuse screen: Denies threats or abuse. Denies injuries from another. Nutritional screening: No deficits noted. Tuberculosis screening: No symptoms or risk factors identified. Assessment: 02:33 General: Appears in no apparent distress. comfortable, Behavior is calm, cooperative, km8 appropriate for age. Pain: Complains of pain in back and right flank and right scapular area Pain currently is 6 out of 10 on a pain scale. Neuro: Level of Consciousness is awake, alert, obeys commands, Oriented to person, place, time, situation. Cardiovascular: Denies chest pain, shortness of breath, Capillary refill < 3 seconds Patient's skin is warm and dry. Respiratory: Airway is patent Respiratory effort is even, unlabored, Respiratory pattern is regular, symmetrical. GI: No signs and/or symptoms were reported involving the gastrointestinal system. : No signs and/or symptoms were reported regarding the genitourinary system. EENT: No signs and/or symptoms were reported regarding the EENT system. Derm: Skin has blisters on right upper back Skin is dry, Skin is pink, warm \T\ dry. normal, Skin temperature is warm. Musculoskeletal: No signs and/or symptoms reported regarding the musculoskeletal system. Circulation, motion, and sensation intact. Range of motion: intact in all extremities. 03:00 Reassessment: Patient appears in no apparent distress at this time. No changes from km8 previously documented assessment. Patient and/or family updated on plan of care and expected duration. Pain level reassessed. Patient is alert, oriented x 3, equal unlabored respirations, skin warm/dry/pink. 04:00 Reassessment: Patient appears in no apparent distress at this time. No changes from km8 previously documented assessment. Patient and/or family updated on plan of care and expected duration. Pain level reassessed. Patient is alert, oriented x 3, equal unlabored respirations, skin warm/dry/pink. 05:00 Reassessment: Patient appears in no apparent distress at this time. No changes from km8 previously documented assessment. Patient and/or family updated on plan of care and expected duration. Pain level reassessed. Patient is alert, oriented x 3, equal unlabored respirations, skin warm/dry/pink. Vital Signs: 01:47 BP 122 / 86; Pulse 85; Resp 17 S; Temp 98.2(O); Pulse Ox 98% on R/A; Weight 54.43 kg lg3 (R); Height 5 ft. 0 in. (R); 02:33 BP 147 / 92; Pulse 83; Resp 16; Pulse Ox 97% on R/A; km8 03:00 BP 135 / 88; Pulse 82; Resp 16; Pulse Ox 98% on R/A; km8 04:00 BP 129 / 77; Pulse 70; Resp 16; Pulse Ox 95% on R/A; km8 05:00 BP 116 / 76; Pulse 67; Resp 16; Pulse Ox 94% on R/A; km8 05:30 BP 130 / 80; Pulse 72; Resp 14; Pulse Ox 96% on R/A; km8 01:47 Body Mass Index 23.44 (54.43 kg, 152.4 cm) lg3 [place] [employer] [place] Coma Score: 02:33 Eye Response: spontaneous(4). Motor Response: obeys commands(6). Verbal Response: km8 oriented(5). Total: 15. ED Course: 01:40 Patient arrived in ED. gm2 01:54 Triage completed. lg3 01:54 Arm band placed on left wrist. lg3 01:56 Tom Mcelroy MD is Attending Physician. sp4 02:10 Mely Suero RN is Primary Nurse. km8 02:33 Patient has correct armband on for positive identification. Placed in gown. Bed in low km8 position. Call light in reach. Side rails up X2. licensed nurse practitioner on. Pulse ox on. NIBP on. Door closed. Noise minimized. Lights dimmed. Warm blanket given. 02:33 Inserted saline lock: 20 gauge in right forearm, using aseptic technique. Blood km8 collected. 02:33 No provider procedures requiring assistance completed. Patient maintains SpO2 km8 saturation greater than 95% on room air. 03:05 XRAY Chest (1 view) In Process Unspecified. EDMS 05:58 Provided Education on: d/c teaching. km8 05:58 IV discontinued, intact, bleeding controlled, No redness/swelling at site. Pressure km8 dressing applied. Administered Medications: 02:53 Drug: Beverly PO 10 mg-325 mg 1 tabs PO once Route: PO; km8 04:31 Follow up: Response: No adverse reaction km8 02:53 Drug: Methocarbamol PO 750 mg PO once Route: PO; km8 04:31 Follow up: Response: No adverse reaction km8 02:53 Drug: Acyclovir PO 800 mg PO once Route: PO; km8 04:31 Follow up: Response: No adverse reaction 8 02:53 Drug: Ondansetron PO 4 mg PO once Route: PO; km8 04:31 Follow up: Response: No adverse reaction 8 02:53 Drug: Ibuprofen PO 400 mg PO once Route: PO; km8 04:31 Follow up: Response: No adverse reaction km8 Medication: 02:33 VIS not applicable for this client. km8 Outcome: 05:44 Discharge ordered by . cecilia 05:58 Discharged to home ambulatory, with family, km8 05:58 Condition: good 05:58 Discharge instructions given to family, Instructed on discharge instructions, follow up and referral plans. medication usage, Demonstrated understanding of instructions, follow-up care, medications, Prescriptions given X 4, 05:59 Patient left the ED. km8 Signatures: Dispatcher [employer] EDMS aCrmenza Grady RN RN lg3 Tom Mcelroy MD MD sp4 Prabha Farr 2 Mely Suero RN RN km8
[2023-09-30 08:36] VITALS: BP 130/80; TEMP 98.2; O2SAT 96
--- NOTE | 2023-10-01 10:59 | RAD REPORT ---
EXAM DESCRIPTION: RAD - Chest Single View - 09/30/2023 3:03 am CLINICAL HISTORY: The patient is 77 years old and is Female; CHEST PAIN TECHNIQUE: Frontal view of the chest. COMPARISON: No relevant prior studies available. FINDINGS: Lungs: Unremarkable. No consolidation. Pleural space: Unremarkable. No pneumothorax. Heart: Unremarkable. Mediastinum: Unremarkable. Normal mediastinal contour. Bones/joints: No acute findings. IMPRESSION: No acute findings in the chest. Electronically signed by: Loc Odonnell MD 09/30/2023 03:36 AM HAT FORMER Due to temporary technical issues with the PACS/Fluency reporting system, reports are being signed by the in house radiologists without review as a courtesy to insure prompt reporting. The interpreting radiologist is fully responsible for the content of the report
--- NOTE | 2023-10-01 17:01 | EKG ---
Test Date: 2023-09-30 Test Time: 02:25:08 Engine Installer: FANG MEASUREMENT RESULTS: Intervals: Rate: 81 NM: 156 QRSD: 70 QT: 324 QTc: 376 [place]: P: 55 NM: 156 QRS: 6 T: 38 INTERPRETIVE STATEMENTS: Normal sinus rhythm Nonspecific T wave abnormality Abnormal ECG Compared to ECG 04/12/2023 00:06:01 No significant changes Electronically Signed On 10-01-23 16:56:30 CUSTOMER MANAGER by Vinicio Wilson
== END ==
LOC: ER 01:32
DX: B02.9 Zoster without complications (principal); R11.0 Nausea; I10 Essential (primary) hypertension; Z11.52 Encounter for screening for COVID-19
CPT/HCPCS: 93005; 85025; 81001; 80048; 36415; 83735; 85610; 80076; 84484; 83880; 87804 ×2; 71045; 99285; 87811; Q0162

== ENCOUNTER 2024-10-12 04:26 | Inpatient (IN) | payer OTHER ==
[2024-10-12] MEDS ORDERED: ONDANSETRON 4 MG/2 ML VIAL ONE (04:57)
[2024-10-12] MEDS ORDERED: MECLIZINE HCL 12.5 MG TAB ONE ×2 (04:58→06:05)
[2024-10-12] MEDS ORDERED: FOLIC ACID 5 MG/ML VIAL ONE (04:59)
[2024-10-12] MEDS ORDERED: NA CHLORIDE 0.9% 1,000 ML ONE ×2 (04:59→10:21)
[2024-10-12 05:22] LABS: PT Prothrombin Time 11.5 SECONDS (9.4-12.5); Protime INR 1.1
[2024-10-12 05:23] LABS: Absolute Basophils 0.1 K/uL (0-0.5); Absolute Eosinophils 0.1 K/uL (0-0.5); Absolute Lymphocytes (CBC) 2.4 K/uL (0.7-4.9); Basophils % 0.8 % (0-1.3); Eosinophils % 1.3 % (0-4.4); Hematocrit 37.5 % (36.0-45.0); Hemoglobin 12.6 g/dL (12.0-15.0); Lymphocytes % 32.1 % (15.3-44.8); MCH 28.7 pg (27.0-35.0); MCHC 33.6 g/dL (32.0-36.0); MCV 85.4 fL (80-100); MPV 8.4 fL (7.6-11.3); Monocytes % 12.7 % (3.3-12.3); Neutrophils % 53.1 % (41.7-73.7); Nucleated Red Blood Cells % 0.1 % (0-0); Platelets 249 thou/uL (152-406); Red Cell Distribution Width 14.1 % (12.1-15.2)
[2024-10-12 05:36] LABS: ALT/SGPT 107 U/L (13-56); AST/SGOT 63 U/L (15-37); Albumin 3.5 g/dL (3.4-5.0); Albumin/Globulin Ratio 0.8 (1.1-1.8); Alkaline Phosphatase 93 U/L (45-117); Anion Gap 8.6 mEq/L (5.0-15.0); BUN Blood Urea Nitrogen 20 mg/dL (7-18); Bicarbonate 29 mEq/L (21-32); Bilirubin Total 0.4 mg/dL (0.2-1.0); Globulin 4.4 g/dL (2.3-3.5); Glomerular Filtration Rate 93 ml/min (=/>90); Glucose Level 125 mg/dL (74-106); Lipase 87 U/L (13-75); Magnesium 2.5 mg/dL (1.6-2.4); NT PRO-BNP 135 pg/mL (<450); Potassium 3.6 mEq/L (3.5-5.1); Protein, Total 7.9 g/dL (6.4-8.2); Sodium Level 138 mEq/L (136-145); Troponin High Sensitivity 3.1 pg/mL (<58.9)
[2024-10-12 05:54] LABS: Bilirubin Direct < 0.2 mg/dL (0-0.2); Bilirubin Indirect, Calculated 0.2 mg/dL (0.2-0.8)
--- NOTE | 2024-10-12 06:14 | EDPHYS ---
Physician Documentation [facility] Name: Patty Ty Age: 78 yrs Sex: Female : 1945 Arrival Date: 10/12/2024 Time: : Bed 5 Private MD: ED Physician Stalin Gatica HPI: 10/12 04:50 This 78 yrs old Female presents to ER via Wheelchair with complaints of janette Dizziness, Nausea/Vomiting. 04:50 The patient presents with dizziness, generalized weakness. Onset: The symptoms/episode janette began/occurred 24 hour(s) ago. Context: occurred at home, at an unknown location, occurred while the patient was unrelated. Modifying factors: The symptoms are alleviated by closing eyes, holding head still, the symptoms are aggravated by movement of head. Associated signs and symptoms: Pertinent positives: nausea, vomiting. Severity of symptoms: At their worst the symptoms were moderate in the emergency department the symptoms are unchanged. Patient's baseline: Neuro:. The patient has not experienced similar symptoms in the past. Historical: - Allergies: 04:49 No Known Allergies; al5 - PMHx: 04:49 Asthma; GERD; Hypertension; al5 - PSHx: 04:49 None; al5 - Immunization history:: Adult Immunizations up to date. - Infectious Disease History:: Denies. - Social history:: Smoking status: Patient denies any tobacco usage or history of. - Family history:: not pertinent. ROS: 04:50 Constitutional: Negative for fever, chills, and weight loss, Eyes: Negative for injury, janette pain, redness, and discharge, ENT: Negative for injury, pain, and discharge, Neck: Negative for injury, pain, and swelling, Cardiovascular: Negative for chest pain, palpitations, and edema, Respiratory: Negative for shortness of breath, cough, wheezing, and pleuritic chest pain, Back: Negative for injury and pain, : Negative for injury, bleeding, discharge, and swelling, MS/Extremity: Negative for injury and deformity, Skin: Negative for injury, rash, and discoloration, Neuro: Negative for headache, weakness, numbness, tingling, and seizure, Psych: Negative for depression, anxiety, suicide ideation, homicidal ideation, and hallucinations, Allergy/Immunology: Negative for hives, rash, and allergies, Endocrine: Negative for neck swelling, polydipsia, polyuria, polyphagia, and marked weight changes, Hematologic/Lymphatic: Negative for swollen nodes, abnormal bleeding, and unusual bruising, 04:50 Abdomen/GI: Positive for nausea and vomiting, 04:50 Neuro: Positive for dizziness, 05:06 Neck: Negative for pain with movement, pain at rest, rash, stiffness, swelling, swollen janette nodes, no caroid bruits, Exam: 04:50 Constitutional: This is a well developed, well nourished patient who is awake, alert, janette and in no acute distress. Head/Face: Normocephalic, atraumatic. Eyes: Pupils equal round and reactive to light, extra-ocular motions intact. Lids and lashes normal. Conjunctiva and sclera are non-icteric and not injected. Cornea within normal limits. Periorbital areas with no swelling, redness, or edema. ENT: Nares patent. No nasal discharge, no septal abnormalities noted. Tympanic membranes are normal and external auditory canals are clear. Oropharynx with no redness, swelling, or masses, exudates, or evidence of obstruction, uvula midline. Mucous membranes moist. Neck: Trachea midline, no thyromegaly or masses palpated, and no cervical lymphadenopathy. Supple, full range of motion without nuchal rigidity, or vertebral point tenderness. No Meningismus. Chest/axilla: Normal chest wall appearance and motion. Nontender with no deformity. No lesions are appreciated. Cardiovascular: Regular rate and rhythm with a normal S1 and S2. No gallops, murmurs, or rubs. Normal PMI, no JVD. No pulse deficits. Respiratory: Lungs have equal breath sounds bilaterally, clear to auscultation and percussion. No rales, rhonchi or wheezes noted. No increased work of breathing, no retractions or nasal flaring. Abdomen/GI: Soft, non-tender, with normal bowel sounds. No distension or tympany. No guarding or rebound. No evidence of tenderness throughout. Back: No spinal tenderness. No costovertebral tenderness. Full range of motion. Female : Normal external genitalia. Skin: Warm, dry with normal turgor. Normal color with no rashes, no lesions, and no evidence of cellulitis. MS/ Extremity: Pulses equal, no cyanosis. Neurovascular intact. Full, normal range of motion., bilateral aka Neuro: Awake and alert, GCS 15, oriented to person, place, time, and situation. Cranial nerves II-XII grossly intact. Motor strength 5/5 in all extremities. Sensory grossly intact. Cerebellar exam normal. Normal gait. Psych: Awake, alert, with orientation to person, place and time. Behavior, mood, and affect are within normal limits. 04:50 Neuro: Orientation: is normal, appropriate for stated age, no acute changes, Mentation: is normal, appropriate for stated age, no acute changes, Memory: is normal, appropriate for stated age, no acute changes, Cranial nerves: grossly normal, is grossly normal based on the patient's age, no acute changes, Cerebellar function: is grossly normal, is grossly normal based on the patient's age, no acute changes, Motor: is normal, Sensation: is normal, Gait: not applicable not tested. seizure activity, is not displayed by the patient, 05:06 Cardiovascular: Rate: normal, Rhythm: regular, Pulses: Pulses are 4+ in bilateral [facility] radial, brachial, femoral, popliteal, posterior tibial and and dorsalis pedis arteries.. Heart sounds: normal, normal S1and S2, no S3 or S4, no murmur, no rub, no gallop, Edema: is not appreciated, JVD: is not appreciated, 05:09 ECG was reviewed by the Attending Physician. [facility] Vital Signs: 04:45 BP 177 / 92; Pulse 69; Resp 16; Pulse Ox 99% on R/A; al5 04:47 BP 174 / 97; Pulse 69; Resp 16; Temp 98; Pulse Ox 96% on R/A; Weight 54.88 kg; Height 5 al5 ft. 0 in. ; 05:00 BP 171 / 93; Pulse 65; Resp 15; Pulse Ox 98% on R/A; al5 05:15 BP 157 / 87; Pulse 65; Resp 18; Pulse Ox 96% on R/A; al5 05:30 BP 157 / 88; Pulse 72; Resp 14; Pulse Ox 96% on R/A; al5 06:30 BP 148 / 84; Pulse 66; Resp 19; Pulse Ox 97% on R/A; al5 06:45 BP 144 / 85; Pulse 74; Resp 18; Pulse Ox 95% on R/A; al5 04:47 Body Mass Index 23.63 (54.88 kg, 152.4 cm) al5 NIH Stroke Scale Scores: 06:59 NIHSS Score: 0 janette MDM: 04:41 Medical Screening Exam initiated janette 05:02 Differential diagnosis: cardiac arrhythmia, CVA, generalized weakness, hypovolemia, janette near-syncope, sepsis, TIA. Data reviewed: vital signs, nurses notes, lab test result(s), EKG, radiologic studies, CT scan, plain films. Consideration of Admission/Observation Escalation of care including admission/observation considered. I considered the following discharge prescriptions or medication management in the emergency department Medications were administered in the Emergency Department. See MAR. Independent interpretation of the following test(s) in the Emergency Department EKG: See my EKG interpretation above. Test considered but Not performed: MRI: no mri brain , not available. Historians other than the Patient: Daughter/Son: daughter. Care significantly affected by the following chronic conditions: asthma, gerd, htn. Counseling: I had a detailed discussion with the patient and/or guardian regarding the historical points, exam findings, and any diagnostic results supporting the discharge/admit diagnosis, lab results, radiology results. 10/12 04:48 Order name: Basic Metabolic Panel; Complete Time: 05:56 janette 10/12 04:48 Order name: CBC with Diff; Complete Time: 05:34 10/12 04:48 Order name: LFT's; Complete Time: 05:56 janette 10/12 04:48 Order name: Magnesium; Complete Time: 05:56 10/12 04:48 Order name: NT PRO-BNP; Complete Time: 05:56 janette 10/12 04:48 Order name: PT-INR; Complete Time: 05:34 10/12 04:48 Order name: Troponin HS; Complete Time: 05:56 janette 10/12 04:48 Order name: Lipase; Complete Time: 05:56 janette 10/12 04:48 Order name: Urinalysis w/ reflexes; Complete Time: 06:23 janette 10/12 04:48 Order name: XRAY Chest (1 view); Complete Time: 07: janette 10/12 04:48 Order name: CT Head Brain wo Cont; Complete Time: 07:09 janette 10/12 04:48 Order name: CT Head Angio; Complete Time: 07: janette 10/12 04:48 Order name: CT Neck Angio; Complete Time: 07: [facility] 10/12 07:27 Order name: CONS Physician Consult EDMI 10/12 04:48 Order name: Cardiac monitoring; Complete Time: 05:07 [facility] 10/12 04:48 Order name: EKG - Nurse/Tech; Complete Time: 05:07 [facility] 10/12 04:48 Order name: IV Saline Lock; Complete Time: 05:07 [facility] 10/12 04:48 Order name: Labs collected and sent; Complete Time: 05:07 [facility] 10/12 04:48 Order name: O2 Per Protocol; Complete Time: 04:53 [facility] 10/12 04:48 Order name: O2 Sat Monitoring; Complete Time: 04:53 [facility] EC:09 Rate is 68 beats/min. Rhythm is regular. QRS [place] is Normal. [place] interval is normal. QRS janette interval is normal. QT interval is normal. No Q waves. T waves are Normal. No ST changes noted. Clinical impression: NSR w/ Non-specific ST/T Changes and No evidence of ischemia. Interpreted by me. Reviewed by me. Administered Medications: 05:07 Drug: NS 0.9% IV 1000 ml IV at 1 bolus Per protocol; to be given as a bolus over 60 al5 minutes Route: IV; Rate: 1 bolus; Site: right wrist; 06:58 Follow up: Response: No adverse reaction; IV Status: Completed infusion; IV Intake: al5 1000ml 05:07 Drug: foLIC Acid IVPB 1 mg IVPB once Route: IVPB; Site: right wrist; al5 06:57 Follow up: Response: No adverse reaction al5 06:57 Follow up: IV Status: Completed infusion; IV Intake: 1000ml al5 05:07 Drug: Meclizine PO 25 mg PO once Route: PO; al5 05:50 Follow up: Response: No adverse reaction; No change in condition al5 05:08 Drug: Ondansetron IVP 8 mg IVP once; over 2 minutes Route: IVP; Site: right wrist; al5 06:04 Follow up: Response: No adverse reaction; Nausea is decreased al5 06:06 Drug: Meclizine PO 25 mg PO once Route: PO; al5 06:44 Follow up: Response: No adverse reaction; No change in condition al5 06:44 Drug: Decadron - Dexamethasone IVP 10 mg IVP once Route: IVP; Site: right wrist; al5 07:26 Follow up: Response: No adverse reaction ll1 06:44 Drug: Famotidine IVP 20 mg IVP once; dilute with 10 mL 0.9% NaCl; give over 2 minutes al5 Route: IVP; Site: right wrist; 07:26 Follow up: Response: No adverse reaction ll1 06:57 Drug: Aspirin PO Chewable Tablet 162 mg PO once; if CT HEAD NEG, GIVE 2 81 MG ASPIRIN al5 Route: PO; 07:26 Follow up: Response: No adverse reaction ll1 06:57 Drug: NS 0.9% IV 500 ml 500 ml IV at 1 bolus once; to be given as a bolus over 30 al5 minutes Volume: 500 ml; Route: IV; Rate: 1 bolus; Site: right wrist; 09:30 Follow up: Response: No adverse reaction; IV Status: Completed infusion; IV Intake: ll1 500ml 06:57 Drug: Promethazine IVP 25 mg IVP once; TO 500 CC BOLUS Route: IVP; Site: right hand; al5 09:30 Follow up: Response: No adverse reaction; Nausea is decreased; RASS: Alert and Calm (0) ll1 Disposition Summary: 10/12/24 06:13 Hospitalization Ordered Notes: Hospitalization Status: Observation janette Provider: Darrell Cam cha Condition: Stable janette Problem: new janette Symptoms: have improved janette Bed/Room Type: Standard janette Location: Telemetry/MedSurg (observation)(10/12/24 13:36) eb Room Assignment: 225(10/12/24 13:36) eb Diagnosis - Dizziness and giddiness janette - Nausea janette - Nausea with vomiting, unspecified janette - Other peripheral vertigo, bilateral janette Forms: - Medication Reconciliation Form janette - SBAR form janette - Leadership Thank You Letter janette NIH Stroke Scale - NIH Stroke Score Date: 10/12/2024 Time: 06:59 Total Score = 0 10. Dysarthria (speech clarity - read or repeat words) - 0(Normal) 11. Extinction and Inattention (visual/tactile/auditory/spatial/personal) - 0(No abnormality) 1a. Level of Consciousness (LOC) - 0(Alert) 1b. Level of Consciousness (LOC) (Month \T\ Age) - 0(Both) 1c. LOC Commands (Open \T\ Closes Eyes/Retail Salesperson) - 0(Both) 2. Best Gaze (Lateral Gaze Paresis) - 0(Normal) 3. Visual Field Loss - 0(No visual loss) 4. Facial Palsy - 0(Normal) 5a. Left Arm: Motor (10-second hold) - 0(No drift) 5b. Right Arm: Motor (10-second hold) - 0(No drift) 6a. Left Leg: Motor (5-second hold - always test supine) - 0(No drift) 6b. Right Leg: Motor (5-second hold - always test supine) - 0(No drift) 7. Limb Ataxia (finger/nose \T\ heel/[place]roy - test with eyes open) - 0(Absent) 8. Sensory Loss (pinprick arms/legs/face) - 0(Normal) 9. Best Language: Aphasia (description/naming/reading) - 0(No aphasia) Initials: janette Signatures: Dispatcher [employer] EDMS Stalin Gatica MD MD cha Botello, Elizabeth eb Able, Lacie, RN RN lg3 Maria G Bates RN RN al5 Jarrell Lamar RN ll1 Corrections: (The following items were deleted from the chart) 04:48 04:48 BASIC METABOLIC PANEL+C.LAB.BRZ ordered. EDMS EDMS 04:48 04:48 CBC+H.LAB.BRZ ordered. EDMS EDMS 04:48 04:48 HEPATIC FUNCTION+C.LAB.BRZ ordered. EDMS EDMS 04:48 04:48 MAGNESIUM+C.LAB.BRZ ordered. EDMS EDMS 04:48 04:48 PROBNP+C.LAB.BRZ ordered. EDMS EDMS 04:48 04:48 PROTIME (+INR)+COAG.LAB.BRZ ordered. EDMS EDMS 04:48 04:48 Troponin High Sensitivity+C.LAB.BRZ ordered. EDMS EDMS 04:48 04:48 LIPASE+C.LAB.BRZ ordered. EDMS EDMS 04:48 04:48 Urinalysis+U.LAB.BRZ ordered. EDMS EDMS 04:49 04:49 Chest Single View+RAD.RAD.BRZ ordered. EDMS EDMS 04:49 04:49 Head Brain Wo Cont+CT.RAD.BRZ ordered. EDMS EDMS 04:49 04:49 Head Angio+CT.RAD.BRZ ordered. EDMS EDMS 04:49 04:49 Neck Angio+CT.RAD.BRZ ordered. EDMS EDMS 06:19 06:13 Telemetry/MedSurg (observation) janette lg3 06:19 06:13 [facility] lg3 13:36 06:19 [facility] ER HOLD lg3 eb 13:36 06:19 ERHOLD- lg3 eb
--- NOTE | 2024-10-12 06:14 | ER ---
Nurse's Notes [facility] Name: Patty Ty Age: 78 yrs Sex: Female : 1945 Arrival Date: 10/12/2024 Time: : Bed 5 Private MD: Diagnosis: Dizziness and giddiness;Nausea;Nausea with vomiting, unspecified;Other peripheral vertigo, bilateral Presentation: 10/12 04:47 Chief complaint: Patient's son or daughter states: patient started to experience al5 dizziness and nausea starting yesterday morning, denies any weakness or pain. Coronavirus screen: At this time, the client does not indicate any symptoms associated with coronavirus-19. Ebola Screen: No symptoms or risks identified at this time. Initial Sepsis Screen: Does the patient meet any 2 criteria? No. Patient's initial sepsis screen is negative. Does the patient have a suspected source of infection? No. Patient's initial sepsis screen is negative. Risk Assessment: Do you want to hurt yourself or someone else? Patient reports no desire to harm self or others. Onset of symptoms was October 11, 2024. 04:47 Method Of Arrival: Wheelchair al5 04:47 Acuity: ARUNA 3 al5 Triage Assessment: 04:50 General: Appears in no apparent distress. well groomed, well developed, Behavior is al5 calm, cooperative. Pain: Denies pain. EENT: No signs and/or symptoms were reported regarding the EENT system. Neuro: Level of Consciousness is awake, alert, obeys commands, Oriented to person, place, time, situation, Reports dizziness. Cardiovascular: Capillary refill < 3 seconds Patient's skin is warm and dry. Respiratory: Airway is patent Respiratory effort is even, unlabored, Respiratory pattern is regular, symmetrical. GI: Abdomen is flat, non-distended, Reports nausea. : No signs and/or symptoms were reported regarding the genitourinary system. Derm: Skin is intact, is healthy with good turgor, Skin is pink, warm \T\ dry. normal. Musculoskeletal: No signs and/or symptoms reported regarding the musculoskeletal system. Historical: - Allergies: 04:49 No Known Allergies; al5 - PMHx: 04:49 Asthma; GERD; Hypertension; al5 - PSHx: 04:49 None; al5 - Immunization history:: Adult Immunizations up to date. - Infectious Disease History:: Denies. - Social history:: Smoking status: Patient denies any tobacco usage or history of. - Family history:: not pertinent. Screenin:52 [facility] ED Fall Risk Assessment (Adult) History of falling in the last 3 months, al5 including since admission No falls in past 3 months (0 pts) Confusion or Disorientation No (0 pts) Intoxicated or Sedated No (0 pts) Impaired Gait Yes (1 pt) Mobility Assist Device Used Yes (1 pt) Altered Elimination No (0 pt) Score/Fall Risk Level 0 - 2 = Low Risk Oriented to surroundings, Maintained a safe environment, Hourly rounding (assess needs \T\ fall precautionary measures) done. Abuse screen: Denies threats or abuse. Denies injuries from another. Nutritional screening: No deficits noted. Tuberculosis screening: No symptoms or risk factors identified. Assessment: 04:52 Reassessment: see triage assessment. al5 05:50 Reassessment: Patient appears in no apparent distress at this time. No changes from al5 previously documented assessment. Patient and/or family updated on plan of care and expected duration. Pain level reassessed. Patient is alert, oriented x 3, equal unlabored respirations, skin warm/dry/pink. 06:59 Reassessment: Patient appears in no apparent distress at this time. No changes from al5 previously documented assessment. Patient and/or family updated on plan of care and expected duration. Pain level reassessed. Patient is alert, oriented x 3, equal unlabored respirations, skin warm/dry/pink. 07:24 General: Appears in no apparent distress. Behavior is calm, cooperative, appropriate ll1 for age. Pain: Denies pain. Neuro: Reports dizziness. GI: Reports nausea. Musculoskeletal: Reports chronic back pain, very little at this time. Vital Signs: 04:45 BP 177 / 92; Pulse 69; Resp 16; Pulse Ox 99% on R/A; al5 04:47 BP 174 / 97; Pulse 69; Resp 16; Temp 98; Pulse Ox 96% on R/A; Weight 54.88 kg; Height 5 al5 ft. 0 in. ; 05:00 BP 171 / 93; Pulse 65; Resp 15; Pulse Ox 98% on R/A; al5 05:15 BP 157 / 87; Pulse 65; Resp 18; Pulse Ox 96% on R/A; al5 05:30 BP 157 / 88; Pulse 72; Resp 14; Pulse Ox 96% on R/A; al5 06:30 BP 148 / 84; Pulse 66; Resp 19; Pulse Ox 97% on R/A; al5 06:45 BP 144 / 85; Pulse 74; Resp 18; Pulse Ox 95% on R/A; al5 04:47 Body Mass Index 23.63 (54.88 kg, 152.4 cm) al5 NIH Stroke Scale Scores: 06:59 NIHSS Score: 0 [facility] ED Course: 04:31 Patient arrived in ED. [email or web address] 04:41 Stalin Gatica MD is Attending Physician. janette 04:46 Maria G Bates, LINDA is Primary Nurse. al5 04:48 Triage completed. al5 04:51 Arm band placed on right wrist. Patient placed in the treatment room, on a stretcher, al5 on pulse oximetry. 04:52 Patient has correct armband on for positive identification. Bed in low position. Call al5 light in reach. Side rails up X2. family at bedside. Provided Education on: plan of care. 04:52 No provider procedures requiring assistance completed. al5 05:10 Inserted saline lock: 20 gauge in right wrist, using aseptic technique. Blood al5 collected. Flushed with 10 mL NS. 05:14 XRAY Chest (1 view) In Process Unspecified. EDMS 06:11 Darrell Cam is Hospitalizing Provider. janette 06:25 CT Head Brain wo Cont In Process Unspecified. EDMS 06:25 CT Head Angio In Process Unspecified. EDMS 06:25 CT Neck Angio In Process Unspecified. EDMS 06:29 Patient admitted, IV remains in place. al5 07:25 Report received from shift commander RN. ll1 Administered Medications: 05:07 Drug: NS 0.9% IV 1000 ml IV at 1 bolus Per protocol; to be given as a bolus over 60 al5 minutes Route: IV; Rate: 1 bolus; Site: right wrist; 06:58 Follow up: Response: No adverse reaction; IV Status: Completed infusion; IV Intake: al5 1000ml 05:07 Drug: foLIC Acid IVPB 1 mg IVPB once Route: IVPB; Site: right wrist; al5 06:57 Follow up: Response: No adverse reaction al5 06:57 Follow up: IV Status: Completed infusion; IV Intake: 1000ml al5 05:07 Drug: Meclizine PO 25 mg PO once Route: PO; al5 05:50 Follow up: Response: No adverse reaction; No change in condition al5 05:08 Drug: Ondansetron IVP 8 mg IVP once; over 2 minutes Route: IVP; Site: right wrist; al5 06:04 Follow up: Response: No adverse reaction; Nausea is decreased al5 06:06 Drug: Meclizine PO 25 mg PO once Route: PO; al5 06:44 Follow up: Response: No adverse reaction; No change in condition al5 06:44 Drug: Decadron - Dexamethasone IVP 10 mg IVP once Route: IVP; Site: right wrist; al5 07:26 Follow up: Response: No adverse reaction ll1 06:44 Drug: Famotidine IVP 20 mg IVP once; dilute with 10 mL 0.9% NaCl; give over 2 minutes al5 Route: IVP; Site: right wrist; 07:26 Follow up: Response: No adverse reaction ll1 06:57 Drug: Aspirin PO Chewable Tablet 162 mg PO once; if CT HEAD NEG, GIVE 2 81 MG ASPIRIN al5 Route: PO; 07:26 Follow up: Response: No adverse reaction ll1 06:57 Drug: NS 0.9% IV 500 ml 500 ml IV at 1 bolus once; to be given as a bolus over 30 al5 minutes Volume: 500 ml; Route: IV; Rate: 1 bolus; Site: right wrist; 09:30 Follow up: Response: No adverse reaction; IV Status: Completed infusion; IV Intake: ll1 500ml 06:57 Drug: Promethazine IVP 25 mg IVP once; TO 500 CC BOLUS Route: IVP; Site: right hand; al5 09:30 Follow up: Response: No adverse reaction; Nausea is decreased; RASS: Alert and Calm (0) ll1 Medication: 04:52 VIS not applicable for this client. al5 Intake: 06:57 IV: 1000ml; Total: 1000ml. al5 06:58 IV: 1000ml; Total: 2000ml. al5 09:30 IV: 500ml; Total: 2500ml. ll1 Outcome: 06:13 Decision to Hospitalize by Provider. janette 06:29 Admitted to ER Hold. Please see [employer] for further documentation. al5 06:29 Condition: stable 06:29 Instructed on the need for admit, 14:17 Patient left the ED. ll1 NIH Stroke Scale - NIH Stroke Score Date: 10/12/2024 Time: 06:59 Total Score = 0 10. Dysarthria (speech clarity - read or repeat words) - 0(Normal) 11. Extinction and Inattention (visual/tactile/auditory/spatial/personal) - 0(No abnormality) 1a. Level of Consciousness (LOC) - 0(Alert) 1b. Level of Consciousness (LOC) (Month \T\ Age) - 0(Both) 1c. LOC Commands (Open \T\ Closes Eyes/Security Screener) - 0(Both) 2. Best Gaze (Lateral Gaze Paresis) - 0(Normal) 3. Visual Field Loss - 0(No visual loss) 4. Facial Palsy - 0(Normal) 5a. Left Arm: Motor (10-second hold) - 0(No drift) 5b. Right Arm: Motor (10-second hold) - 0(No drift) 6a. Left Leg: Motor (5-second hold - always test supine) - 0(No drift) 6b. Right Leg: Motor (5-second hold - always test supine) - 0(No drift) 7. Limb Ataxia (finger/nose \T\ heel/monroy - test with eyes open) - 0(Absent) 8. Sensory Loss (pinprick arms/legs/face) - 0(Normal) 9. Best Language: Aphasia (description/naming/reading) - 0(No aphasia) Initials: janette Signatures: Dispatcher [employer] Stalin Benítez MD MD cha Lewis, Lynsay RN RN ll1 Ledy Guerra [email or web address] Maria G Bates RN RN al5
[2024-10-12 06:19] LABS: Sqamous Epithelial <5 /HPF (None Seen); Urine Bacteria None Seen /HPF (<20); Urine Bilirubin NEGATIVE (Negative); Urine Blood Negative (Negative); Urine Clarity Turbid (Clear); Urine Color Colorless (Yellow); Urine Culture Reflex Order NOT NEEDED; Urine Glucose NEGATIVE (Negative); Urine Ketones NEGATIVE (Negative); Urine Microscopic Reflex YN ORDER UMIC; Urine Mucus Slight /HPF (None Seen); Urine Nitrite NEGATIVE (Negative); Urine Protein NEGATIVE (Negative); Urine RBC <5 /HPF (None Seen); Urine Urobilinogen Normal (Normal); Urine WBC <5 /HPF (<5); Urine pH 7.5 (5.0-7.0)
[2024-10-12] MEDS ORDERED: FAMOTIDINE 20 MG/2 ML VIAL IV ONE (06:38)
[2024-10-12] MEDS ORDERED: dexAMETHasone 10 MG/ML VIAL ONE (06:38)
--- NOTE | 2024-10-12 06:40 | RAD REPORT ---
EXAMINATION: CT HEAD WITHOUT CONTRAST CLINICAL INDICATION: Female, 78 years old.DIZZINESS TECHNIQUE: Axial CT images from the skull base to the vertex without intravenous contrast. Coronal an d sagittal reformatted images were created from the data set. One or more of the following dose reduction techniques were used: Automated exposure control, adjustment of the mA and/or kV according to patient size, and/or iterative reconstruction. Unless otherwise specified, incidental findings do not require dedicated imaging follow-up. [id number]. COMPARISON: 04/12/2023 FINDINGS: INTRACRANIAL: No acute intracranial hemorrhage. No hydrocephalus. No mass effect or midline shift. Mi ld chronic small vessel ischemic changes.Mild cerebral atrophy. VASCULATURE: No visualized abnormalities in the arteries or dural venous sinuses. SCALP/SKULL: No significant soft tissue or osseous abnormalities. SINUSES: Mucosal thickening right maxillary sinus IMPRESSION: No acute intracranial abnormality.
--- NOTE | 2024-10-12 06:42 | RAD REPORT ---
EXAMINATION: CTA NECK CLINICAL INDICATION: Female, 78 years old. PAIN TECHNIQUE: Axial CT images were obtained from the aortic arch to the skull base after intravenous con trast utilizing angiographic protocol with 3D post-processing (maximum intensity projection images, volume rendered images and/or shaded surface rendered images). One or more of the following dose redu ction techniques were used: Automated exposure control, adjustment of the mA and/or kV according to patient size, and/or iterative reconstruction. Unless otherwise specified, incidental findings do not require dedicated imaging follow-up. [id number]. NASCET criteria used. Mild 0-49% stenosis Moderate 50-69% stenosis Severe 70-99% stenosis COMPARISON: 04/12/2023 FINDINGS: AORTA: Aortic arch not included in the [id number]. CCA: The common carotid arteries are patent and normal in caliber. Note that the proximal common mclean tids were excluded from the [id number]. ICA/ECA: Bilateral internal and external carotid arteries are patent. There is no significant interna l carotid artery stenosis. Where applicable, degree of stenosis is measured using NASCET-like criteria. VERTEBRAL: The cervical vertebral arteries are patent and codominant. SOFT TISSUE: No significant neck soft tissue abnormalities. The visualized lung apices are clear. 3D images confirm these findings. IMPRESSION: No dissection or stenosis.
--- NOTE | 2024-10-12 06:44 | RAD REPORT ---
EXAMINATION: CTA HEAD CLINICAL INDICATION: Female, 78 years old. DIZZINESS TECHNIQUE: Axial CT images were obtained through the head after intravenous contrast utilizing angiog raphic protocol with 3D post-processing (maximum intensity projection images, volume rendered images and/or shaded surface rendered images). One or more of the following dose reduction technique s were used: Automated exposure control, adjustment of the mA and/or kV according to patient size, and/or iterative reconstruction. Unless otherwise specified, incidental findings do not require dedic ated imaging follow-up. COMPARISON: 04/12/2023 FINDINGS: ICA: The petrous, cavernous, and supraclinoid segments of the bilateral internal carotid arteries are normal. The ophthalmic artery origins are visualized and normal. The posterior communicating arteries are patent. SAKSHI: Anterior cerebral arteries are normal bilaterally. The anterior communicating artery is patent. MCA: Middle cerebral arteries are normal bilaterally. BUILDING SERVICE WORKER: Posterior cerebral arteries are normal bilaterally. -type right BUILDING SERVICE WORKER. Vertebrobasilar: The vertebral arteries are patent. The basilar artery is ectatic at the tip. 3D images confirm these findings. IMPRESSION: No occlusion, aneurysm, or hemodynamically significant stenosis identified.
[2024-10-12] MEDS ORDERED: ASPIRIN 81 MG CHEWABLE TABLET ONE (06:47)
[2024-10-12] MEDS ORDERED: PROMETHAZINE INJ 25 MG/ML AMP ONE (06:47)
[2024-10-12] MEDS ORDERED: NA CHLORIDE 0.9% 500 ML ONE (06:47)
--- NOTE | 2024-10-12 06:49 | RAD REPORT ---
EXAM: Chest Single View HISTORY: dizzy COMPARISON: None. FINDINGS: LUNGS/PLEURA: The lungs are clear. No pleural effusions or pneumothorax. No pulmonary edema. MEDIASTINUM: The mediastinal silhouette is within normal limits. CARDIAC: The cardiac silhouette is within normal limits. UPPER ABDOMEN: No significant abnormality. BONES: No acute abnormality. LINES/TUBES/OTHER: N/A IMPRESSION: No evidence of acute cardiopulmonary disease.
--- NOTE | 2024-10-12 07:22 | P.HP ---
Certification for Inpatient Patient admitted to: Observation Practitioner: I am a practitioner with admitting privileges, knowledge of patient current condition, hospital course, and medical plan of care. Services: Services provided to patient in accordance with Admission requirements found in Title 42 Section 412.3 of the Code of Federal Regulations Patient History Date of Service: 10/12/24 Reason for admission: Intractable vertigo, dizziness History of Present Illness: 78-year-old female with a past medical history of hypertension, GERD, asthma, presents to the emergency room with dizziness. Daughter is at bedside is primary historian reports symptoms started yesterday about 24 hours ago. Worse with change of position, ambulation. Symptoms improved with resting, being still, eyes closed. She denies slurred speech, no facial droop, no weakness of the upper or lower extremities. Patient is independent at baseline, no dysphagia. No recent falls, no history of stroke or PR. ER evaluation CT, CTA of the head/neck negative, case was discussed with Dr. Reza prior to admission, plan to admit for, dizziness and giddiness, nausea, with neurology to consult. Allergies No Known Allergies Allergy (Verified 07/10/23 08:21) Home Medications: Albuterol Sulfate [Albuterol Sulfate Hfa] 8.5 gm IH DAILY 06/22/23 Alendronate Sodium 70 mg PO EVERY 7TH DAY 06/22/23 Budesonide/Formoterol Fumarate [Breyna 160-4.5 Mcg Inhaler] 10.3 gm IH BID 06/22/23 Cetirizine HCl 10 mg PO DAILY 06/22/23 Donepezil [Aricept] 5 mg PO DAILY 06/22/23 Famotidine 40 mg PO DAILY 06/22/23 Fluticasone Propionate [Flovent Hfa] 12 gm IH BID 06/22/23 Metoprolol Succinate 25 mg PO DAILY 06/22/23 Montelukast [Singulair] 10 mg PO DAILY 06/22/23 Omeprazole [Prilosec] 40 mg PO DAILY 06/22/23 predniSONE [Deltasone] 10 mg PO DAILY 06/22/23 - Past Medical/Surgical History -: Hypertension -: GERD -: Asthma Past Surgical History: Patient denies surgical history - Social History Smoking Status: Never smoker Caffeine use: No Review of Systems 10-point ROS is otherwise unremarkable Physical Examination - Physical Exam General: Alert, In no apparent distress, Oriented x3 HEENT: Atraumatic, Normocephalic, PERRLA Neck: 2+ carotid pulse no bruit, JVD not distended Respiratory: Clear to auscultation bilaterally, Normal air movement Cardiovascular: Normal pulses, Regular rate/rhythm, Normal S1 S2 Gastrointestinal: Normal bowel sounds, Soft and benign Musculoskeletal: No clubbing, No swelling, No contractures Integumentary: No breakdown, No significant lesion Neurological: Normal speech, Normal strength at 5/5 x4 extr, Cranial nerves 3-12 intact, Other (Vertigo, unsteady gait) - Studies Laboratory Data (last 24 hrs) 10/12/24 10/12/24 10/12/24 05:02 05:02 05:02 WBC 7.50 Hgb 12.6 Hct 37.5 Plt Count 249 PT 11.5 INR 1.10 Sodium 138 Potassium 3.6 BUN 20 H Creatinine 0.60 Glucose 125 H Magnesium 2.5 H Total Bilirubin 0.4 AST 63 H ALT 107 H Alkaline Phosphatase 93 Lipase 87 H Assessment and Plan - Problems (Diagnosis) (1) Dizziness and giddiness Current Visit: Yes Status: Acute (2) Vertigo Current Visit: Yes Status: Acute (3) Unsteady gait Current Visit: Yes Status: Acute (4) Hypertension Current Visit: Yes Status: Chronic Qualifiers: Hypertension type: unspecified Qualified Code(s): I10 - Essential (primary) hypertension (5) GERD (gastroesophageal reflux disease) Current Visit: Yes Status: Chronic Qualifiers: Esophagitis presence: without esophagitis Qualified Code(s): K21.9 - Gastro-esophageal reflux disease without esophagitis - Plan Assessment Dizziness and giddiness Intractable vertigo Unsteady gait Admit to MedSurg, neurology to consult MRI ordered for the a.m. Meclizine, as needed antiemetics, Fall precaution CTA of the neck, head, head CT negative for acute changes Chest x-ray unremarkable Hypertension, GERD, Resume home meds Full code DVT Lovenox Diet cardiac Disposition Home independent prior Discharge Plan: Home - Advance Directives Does patient have a Living Will: No Does patient have a Durable POA for Healthcare: No - Code Status/Comfort Care Code Status: Full Code Critical Care: No Time Spent Managing Pts Care (In Minutes): 55
[2024-10-12] MEDS ORDERED: ONDANSETRON 4 MG/2 ML VIAL IV PRN (07:25)
[2024-10-12] MEDS ORDERED: PROMETHAZINE 25 MG TABLET PO PRN (07:25)
[2024-10-12 08:54] VITALS: BMI 3374.4
[2024-10-12] MEDS ORDERED: ENOXAPARIN 40 MG/0.4 ML SQ ONE (10:21)
[2024-10-12] MEDS: NA CHLORIDE 0.9% 1,000 ML IV SCH (10:32)
[2024-10-12] MEDS: ENOXAPARIN 40 MG/0.4 ML SQ SCH (10:33)
[2024-10-12 15:08] VITALS: O2SAT 95
[2024-10-12] MEDS: ACETAMINOPHEN 500 MG TAB PO PRN (16:26)
[2024-10-12] MEDS: MECLIZINE HCL 12.5 MG TAB PO PRN (16:26)
[2024-10-12] MEDS: BENZONATATE 100 MG CAP PO PRN (23:26)
[2024-10-13] MEDS ORDERED: LORazepam 2 MG/ML VIAL IV PRN (05:30)
[2024-10-13 06:57] LABS: Absolute Lymphocytes (CBC) 2.5 K/uL (0.7-4.9); Absolute Neutrophil 9.2 K/uL (1.8-8.0); Basophils % 0.2 % (0-1.3); Hematocrit 34.9 % (36.0-45.0); Hemoglobin 11.8 g/dL (12.0-15.0); Lymphocytes % 19.9 % (15.3-44.8); MCH 29.3 pg (27.0-35.0); MCHC 33.8 g/dL (32.0-36.0); MCV 86.8 fL (80-100); Monocytes % 7.6 % (3.3-12.3); Neutrophils % 72.3 % (41.7-73.7); Platelets 256 thou/uL (152-406); RBC Red Blood Cell Count 4.02 M/uL (3.86-4.86); Red Cell Distribution Width 14.1 % (12.1-15.2)
[2024-10-13 07:13] LABS: Albumin/Globulin Ratio 0.8 (1.1-1.8); Anion Gap 8.5 mEq/L (5.0-15.0); Bilirubin Total 0.3 mg/dL (0.2-1.0); Globulin 3.7 g/dL (2.3-3.5); Magnesium 2.4 mg/dL (1.6-2.4); Potassium 3.5 mEq/L (3.5-5.1); Protein, Total 6.7 g/dL (6.4-8.2)
[2024-10-13] MEDS: FAMOTIDINE 20 MG TAB PO SCH (08:12)
[2024-10-13] MEDS: METOPROLOL XL 25 MG TAB PO SCH (08:12)
[2024-10-13] MEDS: DONEPEZIL HCL 5 MG TAB PO SCH (08:12)
--- NOTE | 2024-10-13 13:51 | P.PN ---
Subjective Date of Service: 10/13/24 Chief Complaint: Intractable vertigo, dizziness Subjective: New changes Patient still complaining of vertigo, spinning sensation when she change her head position, no nausea and vomiting, tolerating oral diet well, less intensity but has not resolved. Denied any unilateral weakness of the extremity or dysphagia or dysarthria or diplopia. Review of Systems Other: Consitutional; fever(-), chills (-), rigor(-), night sweat(-), unintentional weight loss(-), malaise (-) HEENT; diplopia (-), rhinorrhea (-), epistaxis (-), otorrhea (-), otalgia (-) Respiratory; shortness of breath (-), wheezing (-), cough (-), sputum (-), pleuritic chest pain (-) Cardiovascular; chest pain (-), peripheral edema (-), paroxysmal nocturnal dyspnea (-), orthopnea (-) Gastrointestinal; nausea (-), vomiting (-), abdominal pain (-), diarrhea (-), constipation (-), melena (-), hematochezia (-) Genitourinary; urinary frequency (-), dysuria (-), urgency (-), flank pain (-), gross hematuria (-), incontinence (-) Skin; rash (-), pruritus (-) DATA NETWORK ARCHITECT; headache (-), paresthesia (-), numbness (-), paralysis (-) vertigo (-) Physical Examination - Vital Signs Temperature: 98.5 F Blood Pressure: 148/74 Pulse: 57 Respirations: 17 Pulse Ox (%): 96 - Physical Exam Other Physical/Emotional Findings: - Physical Exam. General: Not acutely ill looking, in no apparent distress,. HEENT: Normocephalic, atraumatic, nonicteric sclera, nonanemic conjunctive. Neck: Supple, without JVD or goiter or thyroid mass. Respiratory: Normal breathing effort, clear to auscultation bilaterally, no crackles no wheezing or rhonchi. Cardiovascular: Regular rate and rhythm, S1, S2 normal, no murmur no gallop. Gastrointestinal: Normal bowel sounds, nondistended, nontender, No ascites, , No masses, no hepatosplenomegaly. Extremities : No clubbing, No peripheral edema, full range of motion, no deformity, no muscle atrophy. Integumentary: No rashes, petechia, suspected lesions. Lymphatics: No axilla or cervical lymphadenopathy. Neurology; alert awake oriented x3, no focal neurologic deficit, normal affection . mood and behavior. No nystagmus on lateral or horizontal gaze Assessment And Plan - Plan 78-year-old female with a past medical history of hypertension, GERD, asthma, presents to the emergency room with dizziness. Daughter is at bedside is primary historian reports symptoms started yesterday about 24 hours ago. Worse with change of position, ambulation. Symptoms improved with resting, being still, eyes closed. #1 likely benign positional paroxysmal vertigo Slightly improving on meclizine, no sign of stroke by CT of the head, brain MRI pending, continue meclizine and ondansetron 2. History of hypertension Her blood pressure and heart rate reasonably controlled, continue home metoprolol XL 25 mg once a day DVT prophylaxis enoxaparin subcu
--- NOTE | 2024-10-13 15:18 | P.DS ---
Admission Date: 10/12/24 Discharge Date: 10/13/24 Disposition: ROUTINE DISCHARGE Discharge Condition: GOOD Reason for Admission: Intractable vertigo, dizziness Brief History of Present Illness: 78-year-old female with a past medical history of hypertension, GERD, asthma, presents to the emergency room with dizziness. Daughter is at bedside is primary historian reports symptoms started yesterday about 24 hours ago. Worse with change of position, ambulation. Symptoms improved with resting, being still, eyes closed. Hospital Course: She was treated with meclizine and ondansetron for her symptom, her symptom somewhat improved but not completely resolved. She did not show any sign of ischemic stroke, brain MRI was ordered however patient cannot wait and decided to go home. She is to follow-up with her PCP after discharge. #1 likely benign positional paroxysmal vertigo Clinically responding to meclizine, no sign of stroke by CT of the head, no large vessel occlusion by CT of the head and neck 2. History of hypertension Her blood pressure and heart rate reasonably controlled, continue home metoprolol XL 25 mg once a day Vital Signs/Physical Exam: Temp Pulse Resp BP Pulse Ox 98.5 F 57 17 148/74 H 96 10/13/24 13:51 10/13/24 13:51 10/13/24 13:51 10/13/24 13:51 10/13/24 13:51 Other Physical/Emotional Findings: - Physical Exam. General: Not acutely ill looking, in no apparent distress,. HEENT: Normocephalic, atraumatic, nonicteric sclera, nonanemic conjunctive. Neck: Supple, without JVD or goiter or thyroid mass. Respiratory: Normal breathing effort, clear to auscultation bilaterally, no crackles no wheezing or rhonchi. Cardiovascular: Regular rate and rhythm, S1, S2 normal, no murmur no gallop. Gastrointestinal: Normal bowel sounds, nondistended, nontender, No ascites, , No masses, no hepatosplenomegaly. Extremities : No clubbing, No peripheral edema, full range of motion, no deformity, no muscle atrophy. Integumentary: No rashes, petechia, suspected lesions. Lymphatics: No axilla or cervical lymphadenopathy. Neurology; alert awake oriented x3, no focal neurologic deficit, normal affection . mood and behavior. No nystagmus on lateral or horizontal gaze Laboratory Data at Discharge: WBC 12.70 thou/uL (4.3-10.9) H 10/13/24 06:21 Hgb 11.8 g/dL (12.0-15.0) L 10/13/24 06:21 Hct 34.9 % (36.0-45.0) L 10/13/24 06:21 Plt Count 256 thou/uL (152-406) 10/13/24 06:21 PT 11.5 SECONDS (9.4-12.5) 10/12/24 05:02 INR 1.10 10/12/24 05:02 Sodium 142 mEq/L (136-145) 10/13/24 06:21 Potassium 3.5 mEq/L (3.5-5.1) 10/13/24 06:21 BUN 17 mg/dL (7-18) 10/13/24 06:21 Creatinine 0.66 mg/dL (0.55-1.02) 10/13/24 06:21 Glucose 125 mg/dL (74-106) H 10/13/24 06:21 Magnesium 2.4 mg/dL (1.6-2.4) 10/13/24 06:21 Total Bilirubin 0.3 mg/dL (0.2-1.0) 10/13/24 06:21 AST 43 U/L (15-37) H 10/13/24 06:21 ALT 107 U/L (13-56) H 10/13/24 06:21 Alkaline Phosphatase 79 U/L (45-117) 10/13/24 06:21 Triglycerides 47 mg/dL (<150) 10/13/24 06:21 Cholesterol 197 mg/dL (<200) 10/13/24 06:21 HDL Cholesterol 67 mg/dL (40-60) H 10/13/24 06:21 Cholesterol/HDL Ratio 2.94 10/13/24 06:21 Lipase 59 U/L (13-75) 10/13/24 07:06 Home Medications: Albuterol Sulfate [Albuterol Sulfate Hfa] 8.5 gm IH DAILY 06/22/23 Budesonide/Formoterol Fumarate [Breyna 160-4.5 Mcg Inhaler] 10.3 gm IH BID 06/22/23 Cetirizine HCl 10 mg PO DAILY 06/22/23 Donepezil [Aricept*] 5 mg PO DAILY 06/22/23 Famotidine 40 mg PO DAILY 06/22/23 Fluticasone Propionate [Flovent Hfa] 12 gm IH BID 06/22/23 Metoprolol Succinate 25 mg PO DAILY 06/22/23 Montelukast [Singulair*] 10 mg PO DAILY 06/22/23 Meclizine HCl [Antivert*] 12.5 mg PO TID PRN #20 tab 10/13/24 Ondansetron [Ondansetron Odt] 4 mg PO TID PRN #20 10/13/24 New Medications: Meclizine HCl [Antivert*] 12.5 mg PO TID PRN #20 tab PRN Reason: Dizziness Ondansetron [Ondansetron Odt] 4 mg PO TID PRN #20 PRN Reason: Nausea / Vomiting Followup: Indiana Stewart MD [Primary Care Provider] -
[2024-10-13 16:01] VITALS: BP 134/72; TEMP 98.7
--- NOTE | 2024-10-13 16:23 | RAD REPORT ---
EXAMINATION: MRI BRAIN WITHOUT CONTRAST CLINICAL INDICATION: Female, 78 years old. vertigo TECHNIQUE: Multiplanar multisequence MR images of the brain were obtained without intravenous contras t. Unless otherwise specified, incidental findings do not require dedicated imaging follow-up. [id number]. COMPARISON: Head CT from yesterday FINDINGS: INTRACRANIAL: No acute infarct identified. No significant mass effect or midline shift.No hydrocepha antoni. Mild to moderate chronic small vessel ischemic changes.Mild cerebral atrophy. VASCULATURE: Normal signal voids in the larger intracranial arteries and dural venous sinuses. SINUSES: The paranasal sinuses are clear.No mastoid effusions. BONE: The marrow signal pattern is within normal limits. IMPRESSION: No acute intracranial abnormality. Specifically, no evidence of acute infarct.
[2024-10-13] MEDS ORDERED: MONTELUKAST 10 MG TAB PO SCH (21:00)
--- NOTE | 2024-10-15 12:41 | EKG ---
Test Date: 2024-10-12 Test Time: 04:59:56 Storeroom Keeper: REDD MEASUREMENT RESULTS: Intervals: Rate: 68 SC: 176 QRSD: 84 QT: 378 QTc: 401 [place]: P: 56 SC: 176 QRS: -1 T: -32 INTERPRETIVE STATEMENTS: Normal sinus rhythm Nonspecific T wave abnormality Abnormal ECG Compared to ECG 09/30/2023 02:25:08 No significant changes Electronically Signed On 10-15-24 12:34:36 [employer] by Sin Ellis
== END 2024-10-13 17:42 | disposition home or self-care (01) | DRG 149 ==
LOC: ER 04:26 → ERHOLD 07:22 → 2ND 13:51
PROVIDERS: ADMIT Hospitalist; ATTEND Internal Medicine
DX: H81.10 Benign paroxysmal vertigo, unspecified ear (principal); K21.9 Gastro-esophageal reflux disease without esophagitis; I10 Essential (primary) hypertension; J45.909 Unspecified asthma, uncomplicated; Z79.52 Long term (current) use of systemic steroids; Z79.899 Other long term (current) drug therapy
CPT/HCPCS: 36415; 70450; 70496; 70498; 70551; 71045; 80048; 80053; 80061; 80076; 81001; 83690; 83735; 83880; 84484; 85025; 85610; 93005; 97112; 97116; 97161; 99285; J1100; J1650; J2405; J2550; J7030; J7040; J8597; Q9967